=== PATIENT | male | born 1970 | race Caucasian/White ===

== ENCOUNTER 2020-12-21 14:41 | Inpatient (IN) | payer SELFPAY ==
[~2020-12-21] VITALS: Ht 180.3 cm; Wt 127.6 kg
[2020-12-21] MEDS ORDERED: IV NORMAL SALINE 1000ML BAG 1,000 ML IV SCH (15:45)
[2020-12-21 15:48] LABS: BASO % 0 % (0-3); EOS % 0 % (0-3); HEMATOCRIT 30.7 % (39.0-53.0); HEMOGLOBIN 10.5 g/dL (13.0-17.5); LYMPH # 2.4 x10^3/uL (1.0-4.8); LYMPH % 25 % (24-48); MEAN CORPUSCULAR HEMOGLOBIN 28 pg (25-35); MEAN CORPUSCULAR HGB CONC 34 g/dL (31-37); MEAN CORPUSCULAR VOLUME 82 fL (79-100); MONO # 0.7 x10^3/uL (0.0-1.1); MONO % 7 % (0-9); NEUT # 6.7 x10^3/uL (1.8-7.7); NEUT % 68 % (31-73); PLATELET COUNT 273 x10^3/uL (140-400); RED BLOOD COUNT 3.75 x10^6/uL (4.30-5.70); RED CELL DISTRIBUTION WIDTH 13.7 % (11.5-14.5); WHITE BLOOD COUNT 9.9 x10^3/uL (4.0-11.0)
--- NOTE | 2020-12-21 15:51 | EKG ---
[facility] [address] [place] [address] Test Date: 2020-12-21 Test Time: 15:11:52 Pat Name: BRANDY WILLS Department: Room: Gender: M [employer] Product Owner: : 1970 Requested By: BRIAN VALIENTE Order Number: [id number] Reading MD: Segun Nettles Measurements Intervals [place] Rate: 106 P: 47 MI: 186 QRS: 1 QRSD: 92 T: 146 QT: 356 QTc: 475 Interpretive Statements SINUS TACHYCARDIA LEFT ATRIAL ABNORMALITY LVH WITH REPOLARIZATION ABNORMALITY QRS(T) CONTOUR ABNORMALITY CONSIDER ANTEROSEPTAL MYOCARDIAL DAMAGE ABNORMAL ECG RI6.01 No previous ECG available for comparison Electronically Signed On 12-21-2020 20:53:09 CDT by Segun Nettles
[2020-12-21 16:03] LABS: CALCIUM 8.1 mg/dL (8.5-10.1); CREATININE 0.9 mg/dL (0.7-1.3); GFR 89.3; POTASSIUM 3.8 mmol/L (3.5-5.1)
--- NOTE | 2020-12-21 16:07 | RAD ---
EXAM: Chest, single view. HISTORY: Syncope. COMPARISON: None. FINDINGS: A frontal view of the chest is obtained. There is no infiltrate, pleural effusion or pneumo thorax. The heart is normal in size. IMPRESSION: No acute pulmonary finding. Electronically signed by: Lisbet Hill MD (12/21/2020 4:05 PM) [id number]
[2020-12-21 16:08] LABS: ALBUMIN/GLOBULIN RATIO 0.9 (1.0-1.7); TOTAL BILIRUBIN 0.3 mg/dL (0.2-1.0); TOTAL PROTEIN 6.2 g/dL (6.4-8.2)
--- NOTE | 2020-12-21 16:17 | PHYS DOC ---
Past Medical History Past Surgical History: No Surgical History Smoking Status: Never Smoker Alcohol Use: None General Adult EDM: Chief Complaint: MULTIPLE COMPLAINTS HPI: HPI: Patient is a 50 year old male who presents with 24 hours of shortness of air, weakness, headache, dizziness, possible syncopal episode in the doorway of his bathroom where he states he smashed his belly up against the door frame, lack of appetite. Went to well-[facility] yesterday and does not know if he maybe ate something bad. He states he is been having some diarrhea today. Denies any past medical history or surgeries. Denies any pain, chest pain, vision change, focal weakness, numbness or tingling, abdominal pain, back pain, neck pain, nausea, vomiting, fever. Review of Systems: Review of Systems: Constitutional: Denies fever or chills. [] Eyes: Denies change in visual acuity. [] HENT: Denies nasal congestion or sore throat. + Nasal congestion [] Respiratory: Denies cough or shortness of breath. [] Cardiovascular: Denies chest pain or edema. [] GI: Denies abdominal pain, nausea, vomiting, bloody stools or +diarrhea. [] : Denies dysuria. [] Musculoskeletal: Denies back pain or joint pain. + Generalized weakness [] Integument: Denies rash. [] Neurologic: + headache, denies focal weakness or sensory changes. + Dizziness, +Syncopal episode [] Endocrine: Denies polyuria or polydipsia. [] Lymphatic: Denies swollen glands. [] Psychiatric: Denies depression or anxiety. [] Heart Score: C/O Chest Pain: No HEART Score for Chest Pain: HEART Score for Chest Pain Response (Comments) Value History Slighlty/Non-Suspicious 0 ECG Nonspecific Repolarizatio 1 Age >45 - < 65 1 Risk Factors 1 or 2 Risk Factors 1 Troponin < Normal Limit 0 Total 3 Risk Factors: Risk Factors: DM, Current or recent (<one month) smoker, HTN, HLP, family history of CAD, obesity. Risk Scores: Score 0 - 3: 2.5% MACE over next 6 weeks - Discharge Home Score 4 - 6: 20.3% MACE over next 6 weeks - Admit for Clinical Observation Score 7 - 10: 72.7% MACE over next 6 weeks - Early Invasive Strategies Current Medications: Current Medications Medications (Trade) Dose Ordered Sig/Bishnu Start Time Stop Time Status Last Admin Dose Admin Sodium Chloride 1,000 ml @ 1,000 mls/hr Q1H 12/21/20 15:45 12/21/20 16:44 12/21/20 15:51 1,000 MLS/HR Allergies: Allergies: Allergies Coded Allergies Type Severity Reaction Last Updated Verified No Known Drug Allergies 12/21/20 No Physical Exam: PE: Constitutional: Well developed, well nourished, no acute distress, non-toxic appearance. [] HENT: Normocephalic, atraumatic, bilateral external ears normal, oropharynx moist, no oral exudates, nose normal. [] Eyes: PERRLA, EOMI, conjunctiva normal, no discharge. [] Neck: Normal range of motion, no tenderness, supple, no stridor. [] Cardiovascular:Heart rate regular rhythm, no murmur [] Lungs & Thorax: Bilateral breath sounds clear to auscultation [] Abdomen: Bowel sounds normal, soft, no tenderness, no masses, no pulsatile masses. [] Skin: Warm, dry, no erythema, no rash. Mottling to bilateral upper arms, abdomen [] Back: No tenderness, no CVA tenderness. [] Extremities: No tenderness, no cyanosis, no clubbing, ROM intact, no edema. [] Neurologic: Alert and oriented X 3, normal motor function, normal sensory function, no focal deficits noted. [] Psychologic: Affect normal, judgement normal, mood normal. [] Current Patient Data: Labs: Laboratory Tests Test 12/21/20 14:57 White Blood Count 9.9 x10^3/uL (4.0-11.0) Red Blood Count 3.75 x10^6/uL (4.30-5.70) L Hemoglobin 10.5 g/dL (13.0-17.5) L Hematocrit 30.7 % (39.0-53.0) L Mean Corpuscular Volume 82 fL (79-100) Mean Corpuscular Hemoglobin 28 pg (25-35) Mean Corpuscular Hemoglobin Concent 34 g/dL (31-37) Red Cell Distribution Width 13.7 % (11.5-14.5) Platelet Count 273 x10^3/uL (140-400) Neutrophils (%) (Auto) 68 % (31-73) Lymphocytes (%) (Auto) 25 % (24-48) Monocytes (%) (Auto) 7 % (0-9) Eosinophils (%) (Auto) 0 % (0-3) Basophils (%) (Auto) 0 % (0-3) Neutrophils # (Auto) 6.7 x10^3/uL (1.8-7.7) Lymphocytes # (Auto) 2.4 x10^3/uL (1.0-4.8) Monocytes # (Auto) 0.7 x10^3/uL (0.0-1.1) Eosinophils # (Auto) 0.0 x10^3/uL (0.0-0.7) Basophils # (Auto) 0.0 x10^3/uL (0.0-0.2) Laboratory Tests 12/21/20 14:57 Vital Signs: Vital Signs Date Time Temp Pulse Resp B/P (MAP) Pulse Ox O2 Delivery O2 Flow Rate FiO2 12/21/20 14:41 96.2 109 17 178/84 (115) 100 Room Air 96.2 EKG: EK and read by Dr. Olivarez is sinus tachycardia at 106 with a slight prolonged QT with T wave inversion in 1 and aVL, 5, 6, no STEMI [] Radiology/Procedures: Radiology/Procedures: [] Impression: [facility] [address] [place] [address] IMAGING REPORT Signed PATIENT: BRANDY WILLS ACCOUNT: [id number] : 1970 LOCATION: ER AGE: 50 SEX: M EXAM STATUS: PRE ER ORD. PHYSICIAN: BRIAN VALIENTE APRN REASON: soa, syncope PROCEDURE: PORTABLE CHEST 1V EXAM: Chest, single view. HISTORY: Syncope. COMPARISON: None. FINDINGS: A frontal view of the chest is obtained. There is no infiltrate, pleural effusion or pneumothorax. The heart is normal in size. IMPRESSION: No acute pulmonary finding. Electronically signed by: Lisbet Bradford MD (12/21/2020 4:05 PM) [id number] DICTATED and SIGNED BY: LISBET BRADFORD MD DATE: 12/21/20 [id number] [facility] [address] [facility] [place], [place] [id number] IMAGING REPORT Signed PATIENT: BRANDY WILLS ACCOUNT: [id number] : 1970 LOCATION: ER AGE: 50 SEX: M EXAM STATUS: REG ER ORD. PHYSICIAN: BRIAN VALIENTE APRN REASON: SYNCOPE PROCEDURE: CT HEAD AND CERVICAL SPINE WO CT Head W/O Contrast: History: Reason: SYNCOPE / Spl. Instructions: / History: Comparison: none Axial images were obtained without contrast. The bryant and white matter appears normal and symmetrical for the patients age. There is no mass effect, extraaxial fluid collections or hydrocephalus. There is no gross bleed. There is no focal loss of bryant-white matter distinction to suggest acute ischemia, i.e. stroke. Impression: No acute findings. End impression CT C-Spine without contrast: Clinical History: Reason: SYNCOPE / Spl. Instructions: / History: Technique: Axial helical images of the cervical spine were obtained without contrast, axial coronal and sagittal reconstruction was performed. Findings: There is no loss of vertebral body stature. There is no prevertebral soft tissue swelling. The vertebral bodies are well aligned. There is straightening of the normal cervical lordosis which can be positional or could be chronic. The C1-C2 relationship is normal. The visualized osseous structures appear normal. Evaluation of the central canal is limited without contrast. There is multiple posterior disc bulges resulting in flattening of the thecal sac. There does not appear to be gross flattening of the cervical cord. There is moderate narrowing of multiple neuroforamen. Impression: No acute findings. Clinical correlation suggested. PQRS Compliance Statement: One or more of the following individualized dose reduction techniques were utili zed for this examination: 1. Automated exposure control 2. Adjustment of the mA and/or kV according to patient size 3. Use of iterative reconstruction technique Electronically signed by: Lana Raphael III, MD (12/21/2020 7:28 PM) [facility] DICTATED and SIGNED BY: LANA RAPHAEL III, MD DATE: 12/21/20 [id number] [facility] [address] [place] [address] IMAGING REPORT Signed PATIENT: BRANDY WILLS ACCOUNT: [id number] : 1970 LOCATION: ER AGE: 50 SEX: M EXAM STATUS: REG ER ORD. PHYSICIAN: BRINA VALIENTE APRN REASON: diarrhea PROCEDURE: CT ABD PELV W/ IV CONTRST ONLY CT OF THE ABDOMEN AND PELVIS WITH IV CONTRAST. History: Reason: diarrhea / Spl. Instructions: / History: Comparison:None. Procedure: Contiguous axial images of the abdomen and pelvis were performed after the administration of 75 cc of Isovue 370 IV contrast. Oral contrast: No. Findings: There is fat-containing inguinal canal hernias. The colon is collapsed. There is multiple dilated air and fluid-filled loops of small bowel. Liver: Hypoattenuating Spleen: Unremarkable Pancreas: Unremarkable Adrenal Glands: Unremarkable Kidneys: There is a small cyst on the right There is no mass or lymphadenopathy. There is no free air. There is no free fluid. The urinary bladder appears normal. Impression: 1. Fatty infiltration of the liver. 2. Dilated loops of small bowel especially on the left suggests a partial small bowel obstruction. An exact transition zone is not seen. End Impression PQRS Compliance Statement: One or more of the following individualized dose reduction techniques were utilized for this examination: 1. Automated exposure control 2. Adjustment of the mA and/or kV according to patient size 3. Use of iterative reconstruction technique Electronically signed by: Lana Raphael III, MD (12/21/2020 7:57 PM) [facility] DICTATED and SIGNED BY: LANA RAPHAEL III, MD DATE: 12/21/[id number] 0 Course & Med Decision Making: Course & Med Decision Making Pertinent Labs and Imaging studies reviewed. (See chart for details) COVID-19 CRITERIA: The patient was evaluated during the global COVID-19 pandemic, and that diagnosis was suspected/considered upon their initial presentation. Their evaluation, treatment and testing was consistent with c urrent guidelines for patients who present with complaints or symptoms that may be related to COVID-19. See HPI. Alert and oriented x4. Ambulatory with steady gait. Speaks in full clear sentences. Lungs are clear in upper lobes with diminished in lower lobes. He does have mottling to his abdomen and his upper arms and looks like maybe his upper thigh area and on his sides bilaterally. Abdomen is soft and nontender. He is afebrile. He is slightly tachycardic. Plan talk to Dr. Talamantes concerning this patient and he stated that the patient be n.p.o. and start a NG tube. 2235: RN attempted NG tube insertion. Patient refused. [] Dragon Disclaimer: Maria C Disclaimer: This electronic medical record was generated, in whole or in part, using a voice recognition dictation system. COVID-19 Patient Risks: Age 65 or older: No Sign of co-morbidity: Yes Exp to person + for COVID: No Exp to PUI: No Travel from affected area: No Lower respiratory symptoms: Yes Fever: No Other: Yes (weakness, diarrhea) PPE Use: Full PPE with N95 mask or PAPR: Yes Departure Departure Impression: Primary Impression: Partial small bowel obstruction Disposition: ADMITTED INPATIENT Admitting Physician: DEMARCO Condition: STABLE BRIAN VALIENTE FURNACE CHARGER Dec 21, 2020 16:17
[2020-12-21 16:24] LABS: INFLUENZA A PATIENT NEGATIVE (NEGATIVE); INFLUENZA B PATIENT NEGATIVE (NEGATIVE)
[2020-12-21 17:59] LABS: BILIRUBIN,URINE NEGATIVE (NEG); CLARITY,URINE CLOUDY; COLOR,URINE YELLOW; NITRITE,URINE NEGATIVE (NEG); PH,URINE 5.5 (<5.0-8.0); PROTEIN,URINE NEGATIVE (NEG-TRACE)
[2020-12-21] MEDS ORDERED: CONTRAST GIVEN. MC PRN (18:00)
[2020-12-21] MEDS ORDERED: IV NORMAL SALINE 1000ML BAG 1,000 ML IV ONE (18:00)
[2020-12-21] MEDS ORDERED: IOHEXOL 300 MG/ML 100ML VIAL. IV ONE (18:00)
[2020-12-21 18:06] LABS: BARBITURATES NEG (NEG); BENZODIAZEPINES NEG (NEG); CANNABINOIDS NEG (NEG); COCAINE NEG (NEG); METHADONE NEG (NEG); OPIATES NEG (NEG); PHENCYCLIDINE NEG (NEG)
[2020-12-21 18:07] LABS: AMPHETAMINE/METHAMPHETAMINE POS (NEG)
[2020-12-21 18:10] LABS: BACTERIA,URINE 0 /HPF (0-FEW); RBC,URINE 0 /HPF (0-2); WBC,URINE RARE /HPF (0-4)
[2020-12-21] MEDS ORDERED: ONDANSETRON PF 4 MG/2 ML VIAL. ONE (18:45)
[2020-12-21] MEDS ORDERED: FAMOTIDINE 20 MG/2 ML VIAL ONE (18:49)
[2020-12-21] MEDS ORDERED: FAMOTIDINE 20 MG/2 ML VIAL IVP ONE (19:00)
[2020-12-21] MEDS ORDERED: ONDANSETRON PF 4 MG/2 ML VIAL. IVP ONE (19:00)
--- NOTE | 2020-12-21 19:31 | RAD ---
CT Head W/O Contrast: History: Reason: SYNCOPE / Spl. Instructions: / History: Comparison: none Axial images were obtained without contrast. The bryant and white matter appears normal and symmetrical for the patients age. There is no mass effe ct, extraaxial fluid collections or hydrocephalus. There is no gross bleed. There is no focal loss of bryant-white matter distinction to suggest acute ischemia, i.e. stroke. Impression: No acute findings. End impression CT C-Spine without contrast: Clinical History: Reason: SYNCOPE / Spl. Instructions: / History: Technique: Axial helical images of the cervical spine were obtained without contrast, axial coronal and sagittal reconstruction was performed. Findings: There is no loss of vertebral body stature. There is no prevertebral soft tissue swelling. The vert ebral bodies are well aligned. There is straightening of the normal cervical lordosis which can be p ositional or could be chronic. The C1-C2 relationship is normal. The visualized osseous structures ap pear normal. Evaluation of the central canal is limited without contrast. There is multiple posterio r disc bulges resulting in flattening of the thecal sac. There does not appear to be gross flattening of the cervical cord. There is moderate narrowing of multiple neuroforamen. Impression: No acute findings. Clinical correlation suggested. PQRS Compliance Statement: One or more of the following individualized dose reduction techniques were utilized for this examinat ion: 1. Automated exposure control 2. Adjustment of the mA and/or kV according to patient size 3. Use of iterative reconstruction technique Electronically signed by: Bright Nguyen III, MD (12/21/2020 7:28 PM) [facility]
--- NOTE | 2020-12-21 19:59 | RAD ---
CT OF THE ABDOMEN AND PELVIS WITH IV CONTRAST. History: Reason: diarrhea / Spl. Instructions: / History: Comparison:None. Procedure: Contiguous axial images of the abdomen and pelvis were performed after the administration of 75 cc o f Isovue 370 IV contrast. Oral contrast: No. Findings: There is fat-containing inguinal canal hernias. The colon is collapsed. There is multiple dilated air and fluid-filled loops of small bowel. Liver: Hypoattenuating Spleen: Unremarkable Pancreas: Unremarkable Adrenal Glands: Unremarkable Kidneys: There is a small cyst on the right There is no mass or lymphadenopathy. There is no free air. There is no free fluid. The urinary bladder appears normal. Impression: 1. Fatty infiltration of the liver. 2. Dilated loops of small bowel especially on the left suggests a partial small bowel obstruction. An exact transition zone is not seen. End Impression PQRS Compliance Statement: One or more of the following individualized dose reduction techniques were utilized for this examinat ion: 1. Automated exposure control 2. Adjustment of the mA and/or kV according to patient size 3. Use of iterative reconstruction technique Electronically signed by: Bright Nguyen III, MD (12/21/2020 7:57 PM) [facility]
[2020-12-22 03:00] VITALS: BP 150/98
--- NOTE | 2020-12-22 03:00 | NUR ---
0330 I introduced myself upon arrival in patient room, 0418 when I returned to do assessment patient was asleep and snoring soundly and would not respond to touch and attempt to wake up. Safety measures are in place. Will continue to monitor and reattempt assessment.
[2020-12-22 07:00] VITALS: BP 144/89
[2020-12-22] MEDS ORDERED: LACTULOSE 20 GM/30 ML SOLUTION. PO PRN (08:45)
[2020-12-22] MEDS ORDERED: ELECTROLYTE (NON-ICU) PROTOCOL. MC PRN (08:45)
[2020-12-22] MEDS ORDERED: CALCIUM CARBONATE 500 MG TAB.CHEW PO PRN (08:45)
[2020-12-22] MEDS ORDERED: ZOLPIDEM 5 MG TABLET. PO PRN (08:45)
[2020-12-22] MEDS ORDERED: BISACODYL 10 MG SUPP.RECT. PR PRN (08:45)
[2020-12-22] MEDS ORDERED: hydrALAZINE 20 MG/ML VIAL. IVP PRN (08:45)
[2020-12-22] MEDS ORDERED: ONDANSETRON PF 4 MG/2 ML VIAL. IVP PRN (08:45)
[2020-12-22] MEDS ORDERED: MAGNESIUM HYDROXIDE 2,400 MG/30 ML ORAL.SUSP. PO PRN (08:45)
[2020-12-22] MEDS: SENNOSIDES/DOCUSATE 8.6/50MG TABLET. PO SCH ×2 (09:00→21:00)
--- NOTE | 2020-12-22 09:38 | PDOC1 ---
History and Physical Date of Service: DOS: DATE: 12/22/20 TIME: 09:29 Chief Complaint: Problems: (1) SOB (shortness of breath) (2) Partial small bowel obstruction Chief Complain: abd pain, SOB History of Present Illness: HPI: Patient 50-year-old white male presented the emergency room overnight due to worsening shortness of breath weakness dizziness and easy fatigue. Patient thinks he had a syncopal episode at home where he fell onto his doorway and hit his abdomen against the door frame. He said this changed to pretty immediate bruising. Reporting decreased appetite since this episode. Still having bowel movements. Patient presented to the emergency room where imaging showed a partial small bowel obstruction and he was admitted for further treatment. I evaluated the patient elicited Further history patient reports his shortness of breath and easy fatigue is actually been going on for a few months. Says even with minimal exertion he is very out of breath. Does report that he notices his ankles are swollen at night sometimes. Feels like he needs to sleep with his head propped up and that he actually has some difficulty sleeping due to shortness of breath.. Says he is supposed to be taking some sort of heart medicine however not sure what it supposed to be and has not been taking it anyways. He said a previous physician was 1 who recommended he start it but cannot remember the name. Past Medical/Surgical History: PMH/PSH: Patient says he thinks he supposed to be on heart medicine but not know further details otherwise no past medical history Allergies: Allergies: Coded Allergies: No Known Drug Allergies (Unverified , 12/21/20) Family History: Family History: Reports family history hypertension Social History: Social History: Patient denies tobacco use. Denies drug use. Social alcohol use Current Medications: Current Medications Current Medications Sodium Chloride 1,000 ml @ 1,000 mls/hr Q1H IV Last administered on 12/21/20at 15:51; Start 12/21/20 at 15:45; Stop 12/21/20 at 16:44; Status DC Sodium Chloride 1,000 ml @ 1,000 mls/hr 1X ONCE IV Last administered on 12/21/20at 19:21; Start 12/21/20 at 18:00; Stop 12/21/20 at 18:59; Status DC Iohexol (Omnipaque 300 Mg/ml) 75 ml 1X ONCE IV Last administered on 12/21/20at 18:59; Start 12/21/20 at 18:00; Stop 12/21/20 at 18:01; Status DC Info (CONTRAST GIVEN -- Rx MONITORING) 1 each PRN DAILY PRN MC SEE COMMENTS; Start 12/21/20 at 18:00; Stop 12/23/20 at 17:59 Ondansetron HCl (Zofran) 4 mg 1X ONCE IVP Last administered on 12/21/20at 18:47; Start 12/21/20 at 19:00; Stop 12/21/20 at 19:01; Status DC Ondansetron HCl (Zofran) 4 mg STK-MED ONCE .ROUTE ; Start 12/21/20 at 18:45; Stop 12/21/20 at 18:45; Status DC Famotidine (Pepcid Vial) 20 mg 1X ONCE IVP Last administered on 12/21/20at 18:50; Start 12/21/20 at 19:00; Stop 12/21/20 at 19:01; Status DC Famotidine (Pepcid Vial) 20 mg STK-MED ONCE .ROUTE ; Start 12/21/20 at 18:49; Stop 12/21/20 at 18:49; Status DC Ondansetron HCl (Zofran) 4 mg PRN Q6HRS PRN IVP NAUSEA/VOMITING; Start 12/22/20 at 08:45 Calcium Carbonate/ Glycine (Tums) 500 mg PRN Q3HRS PRN PO UPSET STOMACH; Start 12/22/20 at 08:45 Zolpidem Tartrate (Ambien) 5 mg PRN QHS PRN PO INSOMNIA, MAY REPEAT IN 1HR; Start 12/22/20 at 08:45 Info (Non-Icu Electrolyte Protocol) 1 ea PRN DAILY PRN MC SEE COMMENTS; Start 12/22/20 at 08:45 Senna/Docusate Sodium (Senna Plus) 1 tab BID PO ; Start 12/22/20 at 09:00 Magnesium Hydroxide (Milk Of Magnesia) 2,400 mg PRN Q12HR PRN PO CONSTIPATION; Start 12/22/20 at 08:45 Lactulose (Lactulose) 20 gm PRN Q12HR PRN PO CONSTIPATION; Start 12/22/20 at 08 :45 Bisacodyl (Dulcolax Supp) 10 mg PRN DAILY PRN [place] CONSTIPATION; Start 12/22/20 at 08:45 Heparin Sodium (Porcine) (Heparin Sodium) 5,000 unit Q8HRS SQ ; Start 12/22/20 at 14:00 Hydralazine HCl (Apresoline Inj) 10 mg PRN Q4HRS PRN IVP ELEVATED BP, SEE C OMMENTS; Start 12/22/20 at 08:45 Lisinopril (Prinivil) 5 mg DAILY PO ; Start 12/22/20 at 09:30 ROS: Review of Systems Review of System Unless noted in HPI 14 point review of systems was negative Physical Exam: Vital Signs: Vital Signs Date Time Temp Pulse Resp B/P (MAP) Pulse Ox O2 Delivery O2 Flow Rate FiO2 12/22/20 07:00 97.6 94 18 144/89 (107) 98 Nasal Cannula 2.0 97.6 Physcial Exam: GEN: No apparent distress. Alert and oriented HEENT: Normal cephalic, atraumatic, external auditory canals are patent EYES: Extraocular muscles are intact, pupil are equally round and reactive to light and accommodation MUSCULOSKELETAL: Well developed , well nourished, good range of motion ENDOCRINE: No thyromegaly was palpated LYMPHATICS: No cervical chain or axillary nodes were noted HEMATOPOIETIC: No bruising NECK: Supple, no JVD, no thyromegaly was noted LUNGS: Clear to auscultation in all lung clarke without rhonchi or wheezing HEART: RRR, S1, S2 present. Peripheral pulses intact, no obvious murmurs noted ABDOMEN: Soft, nontender. Positive bowel sounds, no organomegaly, normal bowel sounds EXTREMITIES: Mild pitting edema in ankles NEUROLOGIC: Normal speech and tone. A&O x 3, moves all extremities, no obvious focal deficits PSYCHIATRIC: Normal affect, normal mood. Stable SKIN: No ulcerations or rashes, good skin turgor, no jaundice VASCULAR: Good capillary refill, neurovascular bundle appears to be intact Labs: Labs: Laboratory Tests Test 12/21/20 14:57 12/21/20 15:44 12/21/20 16:00 12/21/20 16:30 White Blood Count 9.9 x10^3/uL (4.0-11.0) Red Blood Count 3.75 x10^6/uL (4.30-5.70) Hemoglobin 10.5 g/dL (13.0-17.5) Hematocrit 30.7 % (39.0-53.0) Mean Corpuscular Volume 82 fL (79-100) Mean Corpuscular Hemoglobin 28 pg (25-35) Mean Corpuscular Hemoglobin Concent 34 g/dL (31-37) Red Cell Distribution Width 13.7 % (11.5-14.5) Platelet Count 273 x10^3/uL (140-400) Neutrophils (%) (Auto) 68 % (31-73) Lymphocytes (%) (Auto) 25 % (24-48) Monocytes (%) (Auto) 7 % (0-9) Eosinophils (%) (Auto) 0 % (0-3) Basophils (%) (Auto) 0 % (0-3) Neutrophils # (Auto) 6.7 x10^3/uL (1.8-7.7) Lymphocytes # (Auto) 2.4 x10^3/uL (1.0-4.8) Monocytes # (Auto) 0.7 x10^3/uL (0.0-1.1) Eosinophils # (Auto) 0.0 x10^3/uL (0.0-0.7) Basophils # (Auto) 0.0 x10^3/uL (0.0-0.2) Sodium Level 141 mmol/L (136-145) Potassium Level 3.8 mmol/L (3.5-5.1) Chloride Level 107 mmol/L (98-107) Carbon Dioxide Level 23 mmol/L (21-32) Anion Gap 11 (6-14) Blood Urea Nitrogen 49 mg/dL (8-26) Creatinine 0.9 mg/dL (0.7-1.3) Estimated GFR (Cockcroft-Gault) 89.3 BUN/Creatinine Ratio 54 (6-20) Glucose Level 155 mg/dL (70-99) Calcium Level 8.1 mg/dL (8.5-10.1) Total Bilirubin 0.3 mg/dL (0.2-1.0) Aspartate Amino Transf (AST/SGOT) 23 U/L (15-37) Alanine Aminotransferase (ALT/SGPT) 66 U/L (16-63) Alkaline Phosphatase 53 U/L (46-116) Troponin I High Sensitivity 15 ng/L (4-75) Total Protein 6.2 g/dL (6.4-8.2) Albumin 3.0 g/dL (3.4-5.0) Albumin/Globulin Ratio 0.9 (1.0-1.7) Lipase 144 U/L (73-393) SARS-CoV-2 Antigen (Rapid) Negative (NEGATIVE) Influenza Type A Antigen Negative (NEGATIVE) Influenza Type B Antigen Negative (NEGATIVE) Prothrombin Time 13.0 SEC (11.7-14.0) Prothromb Time International Ratio 1.0 (0.8-1.1) Activated Partial Thromboplast Time 30 SEC (24-38) Test 12/21/20 17:30 Urine Color Yellow Urine Clarity Cloudy Urine pH 5.5 (<5.0-8.0) Urine Specific [place] 1.025 (1.000-1.030) Urine Protein Negative mg/dL (NEG-TRACE) Urine Glucose (UA) Negative mg/dL (NEG) Urine Ketones (Stick) Negative mg/dL (NEG) Urine Blood Negative (NEG) Urine Nitrite Negative (NEG) Urine Bilirubin Negative (NEG) Urine Urobilinogen Dipstick 1.0 mg/dL (0.2 mg/dL) Urine Leukocyte Esterase Negative (NEG) Urine RBC 0 /HPF (0-2) Urine WBC Rare /HPF (0-4) Urine Squamous Epithelial Cells Few /LPF Urine Bacteria 0 /HPF (0-FEW) Urine Opiates Screen Neg (NEG) Urine Methadone Screen Neg (NEG) Urine Barbiturates Neg (NEG) Urine Phencyclidine Screen Neg (NEG) Urine Amphetamine/Methamphetamine Pos (NEG) Urine Benzodiazepines Screen Neg (NEG) Urine Cocaine Screen Neg (NEG) Urine Cannabinoids Screen Neg (NEG) Urine Ethyl Alcohol Neg (NEG) Laboratory Tests Test 12/21/20 14:57 12/21/20 15:44 12/21/20 16:00 12/21/20 16:30 White Blood Count 9.9 x10^3/uL (4.0-11.0) Red Blood Count 3.75 x10^6/uL (4.30-5.70) Hemoglobin 10.5 g/dL (13.0-17.5) Hematocrit 30.7 % (39.0-53.0) Mean Corpuscular Volume 82 fL (79-100) Mean Corpuscular Hemoglobin 28 pg (25-35) Mean Corpuscular Hemoglobin Concent 34 g/dL (31-37) Red Cell Distribution Width 13.7 % (11.5-14.5) Platelet Count 273 x10^3/uL (140-400) Neutrophils (%) (Auto) 68 % (31-73) Lymphocytes (%) (Auto) 25 % (24-48) Monocytes (%) (Auto) 7 % (0-9) Eosinophils (%) (Auto) 0 % (0-3) Basophils (%) (Auto) 0 % (0-3) Neutrophils # (Auto) 6.7 x10^3/uL (1.8-7.7) Lymphocytes # (Auto) 2.4 x10^3/uL (1.0-4.8) Monocytes # (Auto) 0.7 x10^3/uL (0.0-1.1) Eosinophils # (Auto) 0.0 x10^3/uL (0.0-0.7) Basophils # (Auto) 0.0 x10^3/uL (0.0-0.2) Sodium Level 141 mmol/L (136-145) Potassium Level 3.8 mmol/L (3.5-5.1) Chloride Level 107 mmol/L (98-107) Carbon Dioxide Level 23 mmol/L (21-32) Anion Gap 11 (6-14) Blood Urea Nitrogen 49 mg/dL (8-26) Creatinine 0.9 mg/dL (0.7-1.3) Estimated GFR (Cockcroft-Gault) 89.3 BUN/Creatinine Ratio 54 (6-20) Glucose Level 155 mg/dL (70-99) Calcium Level 8.1 mg/dL (8.5-10.1) Total Bilirubin 0.3 mg/dL (0.2-1.0) Aspartate Amino Transf (AST/SGOT) 23 U/L (15-37) Alanine Aminotransferase (ALT/SGPT) 66 U/L (16-63) Alkaline Phosphatase 53 U/L (46-116) Troponin I High Sensitivity 15 ng/L (4-75) Total Protein 6.2 g/dL (6.4-8.2) Albumin 3.0 g/dL (3.4-5.0) Albumin/Globulin Ratio 0.9 (1.0-1.7) Lipase 144 U/L (73-393) SARS-CoV-2 Antigen (Rapid) Negative (NEGATIVE) Influenza Type A Antigen Negative (NEGATIVE) Influenza Type B Antigen Negative (NEGATIVE) Prothrombin Time 13.0 SEC (11.7-14.0) Prothromb Time International Ratio 1.0 (0.8-1.1) Activated Partial Thromboplast Time 30 SEC (24-38) Test 12/21/20 17:30 Urine Color Yellow Urine Clarity Cloudy Urine pH 5.5 (<5.0-8.0) Urine Specific [place] 1.025 (1.000-1.030) Urine Protein Negative mg/dL (NEG-TRACE) Urine Glucose (UA) Negative mg/dL (NEG) Urine Ketones (Stick) Negative mg/dL (NEG) Urine Blood Negative (NEG) Urine Nitrite Negative (NEG) Urine Bilirubin Negative (NEG) Urine Urobilinogen Dipstick 1.0 mg/dL (0.2 mg/dL) Urine Leukocyte Esterase Negative (NEG) Urine RBC 0 /HPF (0-2) Urine WBC Rare /HPF (0-4) Urine Squamous Epithelial Cells Few /LPF Urine Bacteria 0 /HPF (0-FEW) Urine Opiates Screen Neg (NEG) Urine Methadone Screen Neg (NEG) Urine Barbiturates Neg (NEG) Urine Phencyclidine Screen Neg (NEG) Urine Amphetamine/Methamphetamine Pos (NEG) Urine Benzodiazepines Screen Neg (NEG) Urine Cocaine Screen Neg (NEG) Urine Cannabinoids Screen Neg (NEG) Urine Ethyl Alcohol Neg (NEG) Assessment/Plan Assessment/Plan Partial small bowel obstruction, shortness of breath easy fatigue secondary to possible CHF exacerbation -Patient presenting after possible syncopal episode into the doorway. Has been having issues with swelling of feet and shortness of breath lately -After fall onto the doorway he presented here found a partial small bowel obstruction. Patient is having bowel movements still. General surgery following. -His story does seem suspicious for a CHF exacerbation. Will order echo and consult cardiology -Patient denies any home meds none to resume -With history of difficulty catching his breath while sleeping will try BiPAP when asleep -As patient is having bowel movements still he can try some ice chips for now -DVT prophylaxis Justifications for Admission Other Justification SONU LOFTON MD Dec 22, 2020 09:38
--- NOTE | 2020-12-22 10:03 | PDOC2 ---
CONSULT Date of Consult Date of Consult DATE: 12/22/20 TIME: 09:58 Reason for Consult Reason for Consult: SBO Referring Physician Referring Physician: ER Identification/Chief Complaint Chief Complaint fall, swelling Source Source: Chart review, Patient History of Present Illness Reason for Visit: Main complaint is leg/feet swelling, SOA syncope yesterday, hit abdomen on door as falling--currently denies abdominal pain, having loose stools, mild nausea yesterday, now resolved Past Medical History Past Medical History poor historian, some cardiac hx, however he did not FU with provider Past Surgical History Past Surgical History: No pertinent history Family History Family History: Family History Unknown Social History No ALCOHOL: none Drugs: Crystal meth Current Problem List Problem List Problems Medical Problems: (1) Partial small bowel obstruction Status: Acute Current Medications Current Medications Current Medications Sodium Chloride 1,000 ml @ 1,000 mls/hr Q1H IV Last administered on 12/21/20at 15:51; Start 12/21/20 at 15:45; Stop 12/21/20 at 16:44; Status DC Sodium Chloride 1,000 ml @ 1,000 mls/hr 1X ONCE IV Last administered on 12/21/20at 19:21; Start 12/21/20 at 18:00; Stop 12/21/20 at 18:59; Status DC Iohexol (Omnipaque 300 Mg/ml) 75 ml 1X ONCE IV Last administered on 12/21/20at 18:59; Start 12/21/20 at 18:00; Stop 12/21/20 at 18:01; Status DC Info (CONTRAST GIVEN -- Rx MONITORING) 1 each PRN DAILY PRN MC SEE COMMENTS; Start 12/21/20 at 18:00; Stop 12/23/20 at 17:59 Ondansetron HCl (Zofran) 4 mg 1X ONCE IVP Last administered on 12/21/20at 18:47; Start 12/21/20 at 19:00; Stop 12/21/20 at 19:01; Status DC Ondansetron HCl (Zofran) 4 mg STK-MED ONCE .ROUTE ; Start 12/21/20 at 18:45; Stop 12/21/20 at 18:45; Status DC Famotidine (Pepcid Vial) 20 mg 1X ONCE IVP Last administered on 12/21/20at 18:50; Start 12/21/20 at 19:00; Stop 12/21/20 at 19:01; Status DC Famotidine (Pepcid Vial) 20 mg STK-MED ONCE .ROUTE ; Start 12/21/20 at 18:49; Stop 12/21/20 at 18:49; Status DC Ondansetron HCl (Zofran) 4 mg PRN Q6HRS PRN IVP NAUSEA/VOMITING; Start 12/22/20 at 08:45 Calcium Carbonate/ Glycine (Tums) 500 mg PRN Q3HRS PRN PO UPSET STOMACH; Start 12/22/20 at 08:45 Zolpidem Tartrate (Ambien) 5 mg PRN QHS PRN PO INSOMNIA, MAY REPEAT IN 1HR; Start 12/22/20 at 08:45 Info (Non-Icu Electrolyte Protocol) 1 ea PRN DAILY PRN MC SEE COMMENTS; Start 12/22/20 at 08:45 Senna/Docusate Sodium (Senna Plus) 1 tab BID PO ; Start 12/22/20 at 09:00 Magnesium Hydroxide (Milk Of Magnesia) 2,400 mg PRN Q12HR PRN PO CONSTIPATION; Start 12/22/20 at 08:45 Lactulose (Lactulose) 20 gm PRN Q12HR PRN PO CONSTIPATION; Start 12/22/20 at 08:45 Bisacodyl (Dulcolax Supp) 10 mg PRN DAILY PRN [place] CONSTIPATION; Start 12/22/20 at 08:45 Heparin Sodium (Porcine) (Heparin Sodium) 5,000 unit Q8HRS SQ ; Start 12/22/20 at 14:00 Hydralazine HCl (Apresoline Inj) 10 mg PRN Q4HRS PRN IVP ELEVATED BP, SEE COMMENTS; Start 12/22/20 at 08:45 Lisinopril (Prinivil) 5 mg DAILY PO ; Start 12/22/20 at 09:30 Allergies Allergies: Coded Allergies: No Known Drug Allergies (Unverified , 12/21/20) ROS General: YES: Chills, Fatigue PSYCHOLOGICAL ROS: No: Anxiety, Depression Eyes: No Decreased vision, No Double vision HEENT: No: Heacaches, Sore Throat Hematological and Lymphatic: No: Bleeding Problems, Blood Clots Respiratory: YES: Shortness of breath, SOB with excertion; No: Cough Cardiovascular: No Chest Pain, No Palpitations Gastrointestinal: Yes Nausea, Yes Diarrhea; No Vomiting Genitourinary: No Dysuria, No Hematuria Musculoskeletal: Yes Swelling In: (legs ) Neurological: No Headaches Skin: No Mottling, No Pruritus Physical Exam General: Alert, Oriented X3, Cooperative HEENT: Atraumatic, PERRLA Lungs: Clear to auscultation, Normal air movement Heart: Regular rate, Normal S1, Normal S2 Abdomen: Soft, No tenderness, Other (ND) Extremities: No cyanosis, Other (+swelling) Skin: No rashes, No breakdown Neuro: Normal speech, Sensation intact Psych/Mental Status: Mental status NL, Mood NL MUSCULOSKELETAL: No deformity, No swelling Vitals VITALS Vital Signs Date Time Temp Pulse Resp B/P (MAP) Pulse Ox O2 Delivery O2 Flow Rate FiO2 12/22/20 07:00 97.6 94 18 144/89 (107) 98 Nasal Cannula 2.0 97.6 Labs Labs Laboratory Tests Test 12/21/20 14:57 12/21/20 15:44 12/21/20 16:00 12/21/20 16:30 White Blood Count 9.9 x10^3/uL (4.0-11.0) Red Blood Count 3.75 x10^6/uL (4.30-5.70) Hemoglobin 10.5 g/dL (13.0-17.5) Hematocrit 30.7 % (39.0-53.0) Mean Corpuscular Volume 82 fL (79-100) Mean Corpuscular Hemoglobin 28 pg (25-35) Mean Corpuscular Hemoglobin Concent 34 g/dL (31-37) Red Cell Distribution Width 13.7 % (11.5-14.5) Platelet Count 273 x10^3/uL (140-400) Neutrophils (%) (Auto) 68 % (31-73) Lymphocytes (%) (Auto) 25 % (24-48) Monocytes (%) (Auto) 7 % (0-9) Eosinophils (%) (Auto) 0 % (0-3) Basophils (%) (Auto) 0 % (0-3) Neutrophils # (Auto) 6.7 x10^3/uL (1.8-7.7) Lymphocytes # (Auto) 2.4 x10^3/uL (1.0-4.8) Monocytes # (Auto) 0.7 x10^3/uL (0.0-1.1) Eosinophils # (Auto) 0.0 x10^3/uL (0.0-0.7) Basophils # (Auto) 0.0 x10^3/uL (0.0-0.2) Sodium Level 141 mmol/L (136-145) Potassium Level 3.8 mmol/L (3.5-5.1) Chloride Level 107 mmol/L (98-107) Carbon Dioxide Level 23 mmol/L (21-32) Anion Gap 11 (6-14) Blood Urea Nitrogen 49 mg/dL (8-26) Creatinine 0.9 mg/dL (0.7-1.3) Estimated GFR (Cockcroft-Gault) 89.3 BUN/Creatinine Ratio 54 (6-20) Glucose Level 155 mg/dL (70-99) Calcium Level 8.1 mg/dL (8.5-10.1) Total Bilirubin 0.3 mg/dL (0.2-1.0) Aspartate Amino Transf (AST/SGOT) 23 U/L (15-37) Alanine Aminotransferase (ALT/SGPT) 66 U/L (16-63) Alkaline Phosphatase 53 U/L (46-116) Troponin I High Sensitivity 15 ng/L (4-75) Total Protein 6.2 g/dL (6.4-8.2) Albumin 3.0 g/dL (3.4-5.0) Albumin/Globulin Ratio 0.9 (1.0-1.7) Lipase 144 U/L (73-393) SARS-CoV-2 Antigen (Rapid) Negative (NEGATIVE) Influenza Type A Antigen Negative (NEGATIVE) Influenza Type B Antigen Negative (NEGATIVE) Prothrombin Time 13.0 SEC (11.7-14.0) Prothromb Time International Ratio 1.0 (0.8-1.1) Activated Partial Thromboplast Time 30 SEC (24-38) Test 12/21/20 17:30 Urine Color Yellow Urine Clarity Cloudy Urine pH 5.5 (<5.0-8.0) Urine Specific [place] 1.025 (1.000-1.030) Urine Protein Negative mg/dL (NEG-TRACE) Urine Glucose (UA) Negative mg/dL (NEG) Urine Ketones (Stick) Negative mg/dL (NEG) Urine Blood Negative (NEG) Urine Nitrite Negative (NEG) Urine Bilirubin Negative (NEG) Urine Urobilinogen Dipstick 1.0 mg/dL (0.2 mg/dL) Urine Leukocyte Esterase Negative (NEG) Urine RBC 0 /HPF (0-2) Urine WBC Rare /HPF (0-4) Urine Squamous Epithelial Cells Few /LPF Urine Bacteria 0 /HPF (0-FEW) Urine Opiates Screen Neg (NEG) Urine Methadone Screen Neg (NEG) Urine Barbiturates Neg (NEG) Urine Phencyclidine Screen Neg (NEG) Urine Amphetamine/Methamphetamine Pos (NEG) Urine Benzodiazepines Screen Neg (NEG) Urine Cocaine Screen Neg (NEG) Urine Cannabinoids Screen Neg (NEG) Urine Ethyl Alcohol Neg (NEG) Laboratory Tests Test 12/21/20 14:57 12/21/20 15:44 12/21/20 16:00 12/21/20 16:30 White Blood Count 9.9 x10^3/uL (4.0-11.0) Red Blood Count 3.75 x10^6/uL (4.30-5.70) Hemoglobin 10.5 g/dL (13.0-17.5) Hematocrit 30.7 % (39.0-53.0) Mean Corpuscular Volume 82 fL (79-100) Mean Corpuscular Hemoglobin 28 pg (25-35) Mean Corpuscular Hemoglobin Concent 34 g/dL (31-37) Red Cell Distribution Width 13.7 % (11.5-14.5) Platelet Count 273 x10^3/uL (140-400) Neutrophils (%) (Auto) 68 % (31-73) Lymphocytes (%) (Auto) 25 % (24-48) Monocytes (%) (Auto) 7 % (0-9) Eosinophils (%) (Auto) 0 % (0-3) Basophils (%) (Auto) 0 % (0-3) Neutrophils # (Auto) 6.7 x10^3/uL (1.8-7.7) Lymphocytes # (Auto) 2.4 x10^3/uL (1.0-4.8) Monocytes # (Auto) 0.7 x10^3/uL (0.0-1.1) Eosinophils # (Auto) 0.0 x10^3/uL (0.0-0.7) Basophils # (Auto) 0.0 x10^3/uL (0.0-0.2) Sodium Level 141 mmol/L (136-145) Potassium Level 3.8 mmol/L (3.5-5.1) Chloride Level 107 mmol/L (98-107) Carbon Dioxide Level 23 mmol/L (21-32) Anion Gap 11 (6-14) Blood Urea Nitrogen 49 mg/dL (8-26) Creatinine 0.9 mg/dL (0.7-1.3) Estimated GFR (Cockcroft-Gault) 89.3 BUN/Creatinine Ratio 54 (6-20) Glucose Level 155 mg/dL (70-99) Calcium Level 8.1 mg/dL (8.5-10.1) Total Bilirubin 0.3 mg/dL (0.2-1.0) Aspartate Amino Transf (AST/SGOT) 23 U/L (15-37) Alanine Aminotransferase (ALT/SGPT) 66 U/L (16-63) Alkaline Phosphatase 53 U/L (46-116) Troponin I High Sensitivity 15 ng/L (4-75) Total Protein 6.2 g/dL (6.4-8.2) Albumin 3.0 g/dL (3.4-5.0) Albumin/Globulin Ratio 0.9 (1.0-1.7) Lipase 144 U/L (73-393) SARS-CoV-2 Antigen (Rapid) Negative (NEGATIVE) Influenza Type A Antigen Negative (NEGATIVE) Influenza Type B Antigen Negative (NEGATIVE) Prothrombin Time 13.0 SEC (11.7-14.0) Prothromb Time International Ratio 1.0 (0.8-1.1) Activated Partial Thromboplast Time 30 SEC (24-38) Test 12/21/20 17:30 Urine Color Yellow Urine Clarity Cloudy Urine pH 5.5 (<5.0-8.0) Urine Specific [place] 1.025 (1.000-1.030) Urine Protein Negative mg/dL (NEG-TRACE) Urine Glucose (UA) Negative mg/dL (NEG) Urine Ketones (Stick) Negative mg/dL (NEG) Urine Blood Negative (NEG) Urine Nitrite Negative (NEG) Urine Bilirubin Negative (NEG) Urine Urobilinogen Dipstick 1.0 mg/dL (0.2 mg/dL) Urine Leukocyte Esterase Negative (NEG) Urine RBC 0 /HPF (0-2) Urine WBC Rare /HPF (0-4) Urine Squamous Epithelial Cells Few /LPF Urine Bacteria 0 /HPF (0-FEW) Urine Opiates Screen Neg (NEG) Urine Methadone Screen Neg (NEG) Urine Barbiturates Neg (NEG) Urine Phencyclidine Screen Neg (NEG) Urine Amphetamine/Methamphetamine Pos (NEG) Urine Benzodiazepines Screen Neg (NEG) Urine Cocaine Screen Neg (NEG) Urine Cannabinoids Screen Neg (NEG) Urine Ethyl Alcohol Neg (NEG) Assessment/Plan Assessment/Plan swelling, SOA, syncope---defer to IPC Possible psbo--having loose stools, ileus possible--will repeat XR SHUN VALDEZ [employer] Dec 22, 2020 10:03
--- NOTE | 2020-12-22 10:12 | PDOC2 ---
HUMERA EMMANUEL [employer]ER 12/22/20 1012: CARDIAC CONSULT DATE OF CONSULT Date of Consult DATE: 12/22/20 TIME: 10:02 REASON FOR CONSULT Reason for Consult: CHF REFERRING PHYSICIAN Referring Physician: Dr. Aguayo SOURCE Source: Chart review, Patient HISTORY OF PRESENT ILLNESS HISTORY OF PRESENT ILLNESS This is a 50 yo male who presented secondary to weakness, shortness of breath, and dizziness. Reports previous hospitalization for CHF about 3-4 years ago. Was supposed to start medications for his heart, but unfortunately did not get these filled. Patient reports his CHF resolved so he didnt think he needed the meds. Reports he has been short of breath for the last month or so. Has progressively worsened. This weekend was much worse and was short of breath at rest. Reports he gets dizzy when he feels short of breath. Reports he got up quickly and felt dizzy and ended up falling into a doorway is his house. He denies any LOC or injury. PAST MEDICAL HISTORY Cardiovascular: CHF, HTN Pulmonary: No pertinent hx Heme/Onc: No pertinent hx Psych: No pertinent hx PAST SURGICAL HISTORY Past Surgical History: No pertinent history FAMILY HISTORY Family History: Hypertension SOCIAL HISTORY Smoke: No ALCOHOL: other (6 beers per day ) Drugs: Crystal meth Lives: with Family CURRENT MEDICATIONS CURRENT MEDICATIONS Current Medications Medications (Trade) Dose Ordered Sig/Bishnu Route PRN Reason Start Time Stop Time Status Last Admin Dose Admin Sodium Chloride 1,000 ml @ 1,000 mls/hr Q1H IV 12/21/20 15:45 12/21/20 16:44 DC 12/21/20 15:51 Sodium Chloride 1,000 ml @ 1,000 mls/hr 1X ONCE IV 12/21/20 18:00 12/21/20 18:59 DC 12/21/20 19:21 Iohexol (Omnipaque 300 Mg/ml) 75 ml 1X ONCE IV 12/21/20 18:00 12/21/20 18:01 DC 12/21/20 18:59 Ondansetron HCl (Zofran) 4 mg 1X ONCE IVP 12/21/20 19:00 12/21/20 19:01 DC 12/21/20 18:47 Famotidine (Pepcid Vial) 20 mg 1X ONCE IVP 12/21/20 19:00 12/21/20 19:01 DC 12/21/20 18:50 ALLERGIES ALLERGIES: Coded Allergies: No Known Drug Allergies (Unverified , 12/21/20) ROS Review of System 14 point ROS conducted with pertinent positives noted above in HPI ENDOCRINE: No: Palpitations PHYSICAL EXAM General: Alert, Oriented X3, Cooperative, No acute distress HEENT: Atraumatic Lungs: Other (diminished bases) Heart: Regular rate Abdomen: Soft, No tenderness Extremities: Other (1+ bilateral LE edema ) Skin: No breakdown, No significant lesion Neuro: Normal speech, Sensation intact Psych/Mental Status: Mental status NL, Mood NL MUSCULOSKELETAL: Osteoarthritic changes both hands VITALS/I&O VITALS/I&O: Vital Signs Date Time Temp Pulse Resp B/P (MAP) Pulse Ox O2 Delivery O2 Flow Rate FiO2 12/22/20 07:00 97.6 94 18 144/89 (107) 98 Nasal Cannula 2.0 97.6 I & O 12/21/20 12/21/20 12/22/20 15:00 23:00 07:00 Intake Total 1000 ml 0 ml Balance 1000 ml 0 ml LABS Lab: Laboratory Tests Test 12/21/20 14:57 12/21/20 15:44 12/21/20 16:00 12/21/20 16:30 White Blood Count 9.9 x10^3/uL (4.0-11.0) Red Blood Count 3.75 x10^6/uL (4.30-5.70) L Hemoglobin 10.5 g/dL (13.0-17.5) L Hematocrit 30.7 % (39.0-53.0) L Mean Corpuscular Volume 82 fL (79-100) Mean Corpuscular Hemoglobin 28 pg (25-35) Mean Corpuscular Hemoglobin Concent 34 g/dL (31-37) Red Cell Distribution Width 13.7 % (11.5-14.5) Platelet Count 273 x10^3/uL (140-400) Neutrophils (%) (Auto) 68 % (31-73) Lymphocytes (%) (Auto) 25 % (24-48) Monocytes (%) (Auto) 7 % (0-9) Eosinophils (%) (Auto) 0 % (0-3) Basophils (%) (Auto) 0 % (0-3) Neutrophils # (Auto) 6.7 x10^3/uL (1.8-7.7) Lymphocytes # (Auto) 2.4 x10^3/uL (1.0-4.8) Monocytes # (Auto) 0.7 x10^3/uL (0.0-1.1) Eosinophils # (Auto) 0.0 x10^3/uL (0.0-0.7) Basophils # (Auto) 0.0 x10^3/uL (0.0-0.2) Sodium Level 141 mmol/L (136-145) Potassium Level 3.8 mmol/L (3.5-5.1) Chloride Level 107 mmol/L (98-107) Carbon Dioxide Level 23 mmol/L (21-32) Anion Gap 11 (6-14) Blood Urea Nitrogen 49 mg/dL (8-26) H Creatinine 0.9 mg/dL (0.7-1.3) Estimated GFR (Cockcroft-Gault) 89.3 BUN/Creatinine Ratio 54 (6-20) H Glucose Level 155 mg/dL (70-99) H Calcium Level 8.1 mg/dL (8.5-10.1) L Total Bilirubin 0.3 mg/dL (0.2-1.0) Aspartate Amino Transferase (AST) 23 U/L (15-37) Alanine Aminotransferase (ALT) 66 U/L (16-63) H Alkaline Phosphatase 53 U/L (46-116) Troponin I High Sensitivity 15 ng/L (4-75) Total Protein 6.2 g/dL (6.4-8.2) L Albumin 3.0 g/dL (3.4-5.0) L Albumin/Globulin Ratio 0.9 (1.0-1.7) L Lipase 144 U/L (73-393) SARS-CoV-2 Antigen (Rapid) Negative (NEGATIVE) Influenza Type A Antigen Negative (NEGATIVE) Influenza Type B Antigen Negative (NEGATIVE) Prothrombin Time 13.0 SEC (11.7-14.0) Prothrombin Time INR 1.0 (0.8-1.1) Activated Partial Thromboplast Time 30 SEC (24-38) Test 12/21/20 17:30 Urine Color Yellow Urine Clarity Cloudy Urine pH 5.5 (<5.0-8.0) Urine Specific [place] 1.025 (1.000-1.030) Urine Protein Negative mg/dL (NEG-TRACE) Urine Glucose (UA) Negative mg/dL (NEG) Urine Ketones (Stick) Negative mg/dL (NEG) Urine Blood Negative (NEG) Urine Nitrite Negative (NEG) Urine Bilirubin Negative (NEG) Urine Urobilinogen Dipstick 1.0 mg/dL (0.2 mg/dL) Urine Leukocyte Esterase Negative (NEG) Urine RBC 0 /HPF (0-2) Urine WBC Rare /HPF (0-4) Urine Squamous Epithelial Cells Few /LPF Urine Bacteria 0 /HPF (0-FEW) Urine Opiates Screen Neg (NEG) Urine Methadone Screen Neg (NEG) Urine Barbiturates Neg (NEG) Urine Phencyclidine Screen Neg (NEG) Urine Amphetamine/Methamphetamine Pos (NEG) Urine Benzodiazepines Screen Neg (NEG) Urine Cocaine Screen Neg (NEG) Urine Cannabinoids Screen Neg (NEG) Urine Ethyl Alcohol Neg (NEG) Laboratory Tests 12/21/20 14:57 Laboratory Tests 12/21/20 14:57 ASSESSMENT/PLAN ASSESSMENT/PLAN 1 . Dizziness, near syncope; CT head without acute findings 2. Abdominal pain, nausea, diarrhea; CT with possible SBO 3. Mild acute on chronic probable diastolic CHF 4. Accelerated hypertension; now controlled 5. Hyperglycemia 6. Substance abuse; UDS + methamphetamines 7. ETOH overuse Recommendations Will give dose of IV Lasix BNP level Echo to assess LV systolic function TSH, Lipids, A1c BP control; lisinopril added. Up titrate as warranted Supportive care Consider outpatient ischemic evaluation IGNACIO TESFAYE MD 12/22/20 1700: CARDIAC CONSULT ASSESSMENT/PLAN ASSESSMENT/PLAN Patient seen and evaluated I agree with our nurse practitioners assessment and plan. Dizziness, near syncope; CT head without acute findings Abdominal pain, nausea, diarrhea; CT with possible SBO Mild acute on chronic probable diastolic CHF. Echo pending. Treatment with Lasix and monitoring of lab. Accelerated hypertension; now controlled Substance abuse; UDS + methamphetamines ETOH abuse HUMERA EMMANUEL APRN Dec 22, 2020 10:12 IGNACIO TESFAYE MD Dec 22, 2020 17:00
[2020-12-22 11:00] VITALS: BP 139/85
--- NOTE | 2020-12-22 12:53 | RAD ---
EXAM: XR ABDOMEN COMP ACUTE 12/22/2020 11:38 AM CLINICAL INDICATION: Small bowel obstruction COMPARISON: None TECHNIQUE: AP supine view of the abdomen FINDINGS: Mild gaseous distention of small bowel at the upper limit of normal in caliber. No pneumop eritoneum. Heart is normal size. Lungs are well-expanded and clear. No pleural effusion or pneumothor ax. No acute osseous abnormality. IMPRESSION: Mild gaseous distention of small bowel without definite obstruction. Electronically signed by: Ileana Casanova MD (12/22/2020 12:51 PM) [id number]
[2020-12-22] MEDS: LISINOPRIL 5 MG TABLET. PO SCH (14:34)
[2020-12-22] MEDS: HEPARIN for SUB-Q USE 5,000 UNIT/ML VIAL. SQ SCH ×2 (14:35→22:10)
[2020-12-22 15:00] VITALS: BP 142/88
[2020-12-22] MEDS ORDERED: FUROSEMIDE 40 MG/4 ML VIAL. IVP ONE (15:15)
[2020-12-22] MEDS ORDERED: POTASSIUM CHLORIDE 20 MEQ TABLET.ER. PO ONE (15:15)
--- NOTE | 2020-12-22 16:14 | CARD ---
MR#: [id number] Date of Study: 12/22/2020 Ordering Physician: SONU LOFTON, Referring Physician: SONU LOFTON, Tech: Deisy Preeti, [facility] APPROVED REPORT EXAM: Two-dimensional and M-mode echocardiogram with Doppler and color Doppler. Other Information Quality : AverageHR: 105bpm INDICATION Dyspnea Congestive Heart Failure 2D DIMENSIONS RVDd3.0 (2.9-3.5cm)Left Atrium(2D)3.4 (1.6-4.0cm) IVSd1.2 (0.7-1.1cm)Aortic Root(2D)3.3 (2.0-3.7cm) LVDd5.5 (3.9-5.9cm)LVOT Diameter2.2 (1.8-2.4cm) PWd1.2 (0.7-1.1cm)LVDs3.8 (2.5-4.0cm) FS (%) 30.9 %SV86.2 ml LVEF(%)57.9 (>50%) Aortic Valve AoV Peak Billy.173.1cm/sAoV VTI29.4cm AO Peak GR.12.0mmHgLVOT Peak Billy.134.9cm/s AO Mean GR.6mmHgAVA (VMAX)2.94cm2 Mitral Valve MV E Eaqvmdhp30.6cm/sMV E Peak Gr.5mmHg MV DECEL [id number] A Snrikrqe123.5cm/s MV E Mean Gr.3mmHgE/A Ratio0.6 Pulmonary Valve PV Peak Fhcognuj128.2cm/s Tricuspid Valve TR P. [id number]/sRAP [id number] TR Peak Gr.[id number] LEFT VENTRICLE The left ventricle is normal size. There is mild concentric left ventricular hypertrophy. The left ve ntricular systolic function is normal. The Ejection Fraction is 55-60%. There is normal LV segmental wall motion. Transmitral Doppler flow pattern is Grade I-abnormal relaxation pattern. RIGHT VENTRICLE The right ventricle is normal size. There is normal right ventricular wall thickness. The right ventr icular systolic function is normal. ATRIA The left atrium is borderline dilated. The right atrium size is normal. The interatrial septum is int act with no evidence for an atrial septal defect or patent foramen ovale as noted on 2-D or Doppler i maging. AORTIC VALVE The aortic valve is normal in structure and function. Doppler and Color Flow revealed no significant aortic regurgitation. There is no significant aortic valvular stenosis. Calculated aortic valve area is 3.6 cm2 with maximum pressure gradient of 12 mmHg and mean pressure gradient of 7 mmHg. MITRAL VALVE The mitral valve is normal in structure and function. There is no evidence of mitral valve prolapse. There is no mitral valve stenosis. Doppler and Color-flow revealed trace mitral regurgitation. TRICUSPID VALVE The tricuspid valve is normal in structure and function. Doppler and Color Flow revealed trace tricus pid regurgitation with an estimated PAP of 18 mmHg. There is no tricuspid valve prolapse or vegetatio n. PULMONIC VALVE The pulmonic valve is not well visualized. Doppler and Color Flow revealed trace pulmonic valvular re gurgitation. GREAT VESSELS The aortic root is normal in size. The ascending aorta is normal in size. The IVC is normal in size a nd collapses >50% with inspiration. PERICARDIAL EFFUSION There is no evidence of significant pericardial effusion. Critical Notification Critical Value: No <Conclusion> The left ventricular systolic function is normal. The Ejection Fraction is 55-60%. There is normal LV segmental wall motion. Transmitral Doppler flow pattern is Grade I-abnormal relaxation pattern. Trace mitral regurgitation. Trace tricuspid regurgitation with an estimated PAP of 18 mmHg. There is no evidence of significant pericardial effusion. Signed by : Segun Nettles, Electronically Approved : 12/22/2020 16:14:35
[2020-12-22 18:27] LABS: CHOLESTEROL/HDL RATIO 4.4
[2020-12-22 19:00] VITALS: BP 125/78
[2020-12-22 23:00] VITALS: BP 117/55
[2020-12-23 01:09] LABS: HEMOGLOBIN A1C 5.5 % (4.8-5.6)
[2020-12-23 03:00] VITALS: BP 106/62
[2020-12-23] MEDS: HEPARIN for SUB-Q USE 5,000 UNIT/ML VIAL. SQ SCH ×3 (06:47→22:27)
[2020-12-23 07:00] VITALS: BP 143/87
[2020-12-23] MEDS: SENNOSIDES/DOCUSATE 8.6/50MG TABLET. PO SCH ×3 (07:57→22:24)
[2020-12-23] MEDS: LISINOPRIL 5 MG TABLET. PO SCH (08:51)
[2020-12-23 09:52] LABS: BASO % 0 % (0-3); EOS # 0.2 x10^3/uL (0.0-0.7); EOS % 2 % (0-3); HEMATOCRIT 23.3 % (39.0-53.0); LYMPH # 1.2 x10^3/uL (1.0-4.8); LYMPH % 15 % (24-48); MEAN CORPUSCULAR HEMOGLOBIN 29 pg (25-35); MEAN CORPUSCULAR HGB CONC 34 g/dL (31-37); MEAN CORPUSCULAR VOLUME 83 fL (79-100); MONO # 0.5 x10^3/uL (0.0-1.1); MONO % 7 % (0-9); NEUT # 6.1 x10^3/uL (1.8-7.7); NEUT % 76 % (31-73); PLATELET COUNT 183 x10^3/uL (140-400); RED BLOOD COUNT 2.79 x10^6/uL (4.30-5.70); RED CELL DISTRIBUTION WIDTH 13.9 % (11.5-14.5)
[2020-12-23 10:00] LABS: ALBUMIN 2.8 g/dL (3.4-5.0); ALBUMIN/GLOBULIN RATIO 0.9 (1.0-1.7); CALCIUM 7.7 mg/dL (8.5-10.1); GFR 79.1; POTASSIUM 3.6 mmol/L (3.5-5.1); TOTAL BILIRUBIN 0.4 mg/dL (0.2-1.0)
--- NOTE | 2020-12-23 10:19 | NUR ---
SW following. Discussed with RN, pt from home alone, room air, clear liquid diet. COVID-19 negative. Med Assist following for self pay status. RN advised pt not ready for discharge at this time. SW will continue to follow.
[2020-12-23 11:17] VITALS: BP 162/88
--- NOTE | 2020-12-23 11:40 | PDOC2 ---
GI CONSULT Date of Service: DATE: 12/23/20 TIME: 11:40 Reason For Consult: dark stool, declining Hgb HPI: HPI: 50 y/o male admitted through ER on 12/21. Chart reviewed - had variety of complaints then including weakness, SOA, JACOB, dizziness, near syncope, and diarrhea. Noted w/ possible partial SBO on CT - surgery following for this. Cardiology following for probable CHF and accelerated HTN. Admitting Hgb 10.5 on 12/21, down to 8 today. BUN was elevated (49) - normal now. Tox screen +amphetamines. BNP was normal. Reports of "dark" stools - we are asked to see re: this. Was started on pantoprazole. Tolerating clear liquid diet. He is not the greatest historian. Says dark stools/diarrhea ("watery") started after he was admitted. No h/o this at home. Currently feels like he needs to take deep breaths. H/o acid reflux - takes Pepto-Bismol frequently for this. Denies h/o anemia. Denies dysphagia, n/v, abd pain, constipation, hematochezia, change in appetite, and weight loss. Other notes mentions hit abdomen on door when fell at home, also mild nausea on day of admission. No previous EGD or colonoscopy. No GB, liver, pancreas, or PUD history. Fatty liver on CT. Denies NSAID use. H/o non-compliance. PMH: PMH: CHF, HTN FH: Family History: No pertinent hx (denies GI cancers) Social History: Smoke: No ALCOHOL: heavy (6 pack daily) Drugs: Crystal meth ROS: GEN: Denies fevers, chills, sweats HEENT: Denies blurred vision, sore throat CV: Denies chest pain RESP: +SOA GI: Per HPI : Denies hematuria, dysuria ENDO: Denies weight changes NEURO: +dizziness MSK: +neck ache SKIN: Denies jaundice, pruritus Vitals: Vitals: Vital Signs Date Time Temp Pulse Resp B/P (MAP) Pulse Ox O2 Delivery O2 Flow Rate FiO2 12/23/20 11:17 98.0 89 18 162/88 (112) 96 Room Air 98.0 12/22/20 07:00 2.0 Labs: Labs: Laboratory Tests Test 12/22/20 15:30 12/22/20 15:45 12/22/20 17:52 12/23/20 09:35 Triglycerides Level 117 mg/dL (0-150) Cholesterol Level 123 mg/dL (0-200) LDL Cholesterol, Calculated 72 mg/dL (0-100) VLDL Cholesterol, Calculated 23 mg/dL (0-40) Non-HDL Cholesterol Calculated 95 mg/dL (0-129) HDL Cholesterol 28 mg/dL (40-60) Cholesterol/HDL Ratio 4.4 Hemoglobin A1c 5.5 % (4.8-5.6) Thyroid Stimulating Hormone (TSH) 2.944 uIU/mL (0.358-3.74) Glucose (Fingerstick) 110 mg/dL (70-99) White Blood Count 8.0 x10^3/uL (4.0-11.0) Red Blood Count 2.79 x10^6/uL (4.30-5.70) Hemoglobin 8.0 g/dL (13.0-17.5) Hematocrit 23.3 % (39.0-53.0) Mean Corpuscular Volume 83 fL (79-100) Mean Corpuscular Hemoglobin 29 pg (25-35) Mean Corpuscular Hemoglobin Concent 34 g/dL (31-37) Red Cell Distribution Width 13.9 % (11.5-14.5) Platelet Count 183 x10^3/uL (140-400) Neutrophils (%) (Auto) 76 % (31-73) Lymphocytes (%) (Auto) 15 % (24-48) Monocytes (%) (Auto) 7 % (0-9) Eosinophils (%) (Auto) 2 % (0-3) Basophils (%) (Auto) 0 % (0-3) Neutrophils # (Auto) 6.1 x10^3/uL (1.8-7.7) Lymphocytes # (Auto) 1.2 x10^3/uL (1.0-4.8) Monocytes # (Auto) 0.5 x10^3/uL (0.0-1.1) Eosinophils # (Auto) 0.2 x10^3/uL (0.0-0.7) Basophils # (Auto) 0.0 x10^3/uL (0.0-0.2) Sodium Level 139 mmol/L (136-145) Potassium Level 3.6 mmol/L (3.5-5.1) Chloride Level 104 mmol/L (98-107) Carbon Dioxide Level 28 mmol/L (21-32) Anion Gap 7 (6-14) Blood Urea Nitrogen 16 mg/dL (8-26) Creatinine 1.0 mg/dL (0.7-1.3) Estimated GFR (Cockcroft-Gault) 79.1 BUN/Creatinine Ratio 16 (6-20) Glucose Level 130 mg/dL (70-99) Calcium Level 7.7 mg/dL (8.5-10.1) Total Bilirubin 0.4 mg/dL (0.2-1.0) Aspartate Amino Transf (AST/SGOT) 32 U/L (15-37) Alanine Aminotransferase (ALT/SGPT) 66 U/L (16-63) Alkaline Phosphatase 52 U/L (46-116) Total Protein 6.0 g/dL (6.4-8.2) Albumin 2.8 g/dL (3.4-5.0) Albumin/Globulin Ratio 0.9 (1.0-1.7) Allergies: Coded Allergies: No Known Drug Allergies (Unverified , 12/21/20) Medications: Current Medications Medications (Trade) Dose Ordered Sig/Bishnu Route PRN Reason Start Time Stop Time Status Last Admin Dose Admin Heparin Sodium (Porcine) (Heparin Sodium) 5,000 unit Q8HRS SQ 12/22/20 14:00 12/23/20 06:47 Furosemide (Lasix) 40 mg 1X ONCE IVP 12/22/20 15:15 12/22/20 15:16 DC 12/22/20 16:29 Potassium Chloride (Klor-Con) 20 meq 1X ONCE PO 12/22/20 15:15 12/22/20 15:16 DC 12/22/20 16:29 Imaging: Imaging: Echo 12/22 <Conclusion> The left ventricular systolic function is normal. The Ejection Fraction is 55-60%. There is normal LV segmental wall motion. Transmitral Doppler flow pattern is Grade I-abnormal relaxation pattern. Trace mitral regurgitation. Trace tricuspid regurgitation with an estimated PAP of 18 mmHg. There is no evidence of significant pericardial effusion. AAS 12/22 IMPRESSION: Mild gaseous distention of small bowel without definite obstruction. Head/C-spine CT 12/21 Impression: No acute findings. Clinical correlation suggested. CXR 12/21 IMPRESSION: No acute pulmonary finding. CT A/P 12/21 Impression: 1. Fatty infiltration of the liver. 2. Dilated loops of small bowel especially on the left suggests a partial small bowel obstruction. An exact transition zone is not seen. PE: GEN: NAD - was sleeping soundly HEENT: Atraumatic, PERRL LUNGS: CTAB HEART: RRR ABD: quiet BS, soft, non-tender, round/large EXTREMITY: trace edema BLE SKIN: No rashes, no jaundice NEURO/PSYCH: A & O 3 A/P: A/P: Weakness, SOA Diarrhea/dark stools - takes Pepto at home H/o CHF, non-compliance, substance abuse Anemia - Hgb drifting Abnormal CT w/ possible SBO Acid reflux - takes Pepto CRC screen - none Fatty liver COVID negative -- Varying history. Check anemia parameters. Agree w/ PPI. May need to consider EGD - will review w/ Dr. Mcmullen. Consider stool studies. Needs outpt screening colonoscopy. ARABELLA NAVARRO Dec 23, 2020 11:40
--- NOTE | 2020-12-23 12:38 | PDOC ---
CARDIO Progress Notes Date and Time Date of Service 12/23/20 Time of Evaluation 1230 Subjective Subjective: No Chest Pain, No shortness of breath, No Palpitations Vitals Vitals Vital Signs Date Time Temp Pulse Resp B/P (MAP) Pulse Ox O2 Delivery O2 Flow Rate FiO2 12/23/20 11:17 98.0 89 18 162/88 (112) 96 Room Air 98.0 12/22/20 07:00 2.0 Weight Weight [ ] Input and Output Intake and Output Intake and Output 12/23/20 07:00 Intake Total 520 ml Balance 520 ml Intake Oral 520 ml # Voids 4 Laboratory Labs Laboratory Tests Test 12/22/20 15:30 12/22/20 15:45 12/22/20 17:52 12/23/20 09:35 Triglycerides Level 117 mg/dL (0-150) Cholesterol Level 123 mg/dL (0-200) LDL Cholesterol, Calculated 72 mg/dL (0-100) VLDL Cholesterol, Calculated 23 mg/dL (0-40) Non-HDL Cholesterol Calculated 95 mg/dL (0-129) HDL Cholesterol 28 mg/dL (40-60) Cholesterol/HDL Ratio 4.4 Hemoglobin A1c 5.5 % (4.8-5.6) Thyroid Stimulating Hormone (TSH) 2.944 uIU/mL (0.358-3.74) Glucose (Fingerstick) 110 mg/dL (70-99) White Blood Count 8.0 x10^3/uL (4.0-11.0) Red Blood Count 2.79 x10^6/uL (4.30-5.70) Hemoglobin 8.0 g/dL (13.0-17.5) Hematocrit 23.3 % (39.0-53.0) Mean Corpuscular Volume 83 fL (79-100) Mean Corpuscular Hemoglobin 29 pg (25-35) Mean Corpuscular Hemoglobin Concent 34 g/dL (31-37) Red Cell Distribution Width 13.9 % (11.5-14.5) Platelet Count 183 x10^3/uL (140-400) Neutrophils (%) (Auto) 76 % (31-73) Lymphocytes (%) (Auto) 15 % (24-48) Monocytes (%) (Auto) 7 % (0-9) Eosinophils (%) (Auto) 2 % (0-3) Basophils (%) (Auto) 0 % (0-3) Neutrophils # (Auto) 6.1 x10^3/uL (1.8-7.7) Lymphocytes # (Auto) 1.2 x10^3/uL (1.0-4.8) Monocytes # (Auto) 0.5 x10^3/uL (0.0-1.1) Eosinophils # (Auto) 0.2 x10^3/uL (0.0-0.7) Basophils # (Auto) 0.0 x10^3/uL (0.0-0.2) Sodium Level 139 mmol/L (136-145) Potassium Level 3.6 mmol/L (3.5-5.1) Chloride Level 104 mmol/L (98-107) Carbon Dioxide Level 28 mmol/L (21-32) Anion Gap 7 (6-14) Blood Urea Nitrogen 16 mg/dL (8-26) Creatinine 1.0 mg/dL (0.7-1.3) Estimated GFR (Cockcroft-Gault) 79.1 BUN/Creatinine Ratio 16 (6-20) Glucose Level 130 mg/dL (70-99) Calcium Level 7.7 mg/dL (8.5-10.1) Iron Level 37 ug/dL (65-175) Total Iron Binding Capacity 286 ug/dL (250-450) Iron Saturation 13 % (15-34) Total Bilirubin 0.4 mg/dL (0.2-1.0) Aspartate Amino Transf (AST/SGOT) 32 U/L (15-37) Alanine Aminotransferase (ALT/SGPT) 66 U/L (16-63) Alkaline Phosphatase 52 U/L (46-116) Total Protein 6.0 g/dL (6.4-8.2) Albumin 2.8 g/dL (3.4-5.0) Albumin/Globulin Ratio 0.9 (1.0-1.7) Vitamin B12 Level 956 pg/mL (247-911) Physical Exam HEENT: Neck Supple W Full Motion Chest: Symmetric LUNGS: Clear to Auscultation Heart: RRR Abdomen: Soft N/T Extremities: No Edema Neurology: alert, oriented Assessment Assessment 1 . Dizziness, near syncope; CT head without acute findings 2. Abdominal pain, nausea, diarrhea; CT with possible SBO 3. Mild acute on chronic diastolic CHF; Echo with preserved LV systolic function. NT pro BNP WNL. s/p IV Lasix 4. Accelerated hypertension; now controlled 5. Hyperglycemia; A1c 5.5 6. Substance abuse; UDS + methamphetamines 7. ETOH overuse Recommendations Supportive care Follow GI, surgical recs Consider outpatient ischemic evaluation Justicifation of Admission Dx: Justifications for Admission: Justification of Admission Dx: Yes Comments: Acute on chronic diastolic CHF HUMERA EMMANUEL APRN Dec 23, 2020 12:38
--- NOTE | 2020-12-23 13:18 | PDOC ---
SHUN VALDEZ [employer] 12/23/20 1318: SURGICAL PROGRESS NOTE DATE: 12/23/20 TIME: 13:13 Subjective no abdominal pain no n/v tolerating clears yesterday started dark stools Vital Signs Vital Signs Date Time Temp Pulse Resp B/P (MAP) Pulse Ox O2 Delivery O2 Flow Rate FiO2 12/23/20 11:17 98.0 89 18 162/88 (112) 96 Room Air 98.0 12/22/20 07:00 2.0 I&O Intake and Output 12/23/20 07:00 Intake Total 520 ml Balance 520 ml Intake Oral 520 ml # Voids 4 General: Alert, Oriented X3, Cooperative Abdomen: Soft, No tenderness Labs Laboratory Tests Test 12/21/20 14:57 12/21/20 15:44 12/21/20 16:00 12/21/20 16:30 White Blood Count 9.9 x10^3/uL (4.0-11.0) Red Blood Count 3.75 x10^6/uL (4.30-5.70) Hemoglobin 10.5 g/dL (13.0-17.5) Hematocrit 30.7 % (39.0-53.0) Mean Corpuscular Volume 82 fL (79-100) Mean Corpuscular Hemoglobin 28 pg (25-35) Mean Corpuscular Hemoglobin Concent 34 g/dL (31-37) Red Cell Distribution Width 13.7 % (11.5-14.5) Platelet Count 273 x10^3/uL (140-400) Neutrophils (%) (Auto) 68 % (31-73) Lymphocytes (%) (Auto) 25 % (24-48) Monocytes (%) (Auto) 7 % (0-9) Eosinophils (%) (Auto) 0 % (0-3) Basophils (%) (Auto) 0 % (0-3) Neutrophils # (Auto) 6.7 x10^3/uL (1.8-7.7) Lymphocytes # (Auto) 2.4 x10^3/uL (1.0-4.8) Monocytes # (Auto) 0.7 x10^3/uL (0.0-1.1) Eosinophils # (Auto) 0.0 x10^3/uL (0.0-0.7) Basophils # (Auto) 0.0 x10^3/uL (0.0-0.2) Sodium Level 141 mmol/L (136-145) Potassium Level 3.8 mmol/L (3.5-5.1) Chloride Level 107 mmol/L (98-107) Carbon Dioxide Level 23 mmol/L (21-32) Anion Gap 11 (6-14) Blood Urea Nitrogen 49 mg/dL (8-26) Creatinine 0.9 mg/dL (0.7-1.3) Estimated GFR (Cockcroft-Gault) 89.3 BUN/Creatinine Ratio 54 (6-20) Glucose Level 155 mg/dL (70-99) Calcium Level 8.1 mg/dL (8.5-10.1) Total Bilirubin 0.3 mg/dL (0.2-1.0) Aspartate Amino Transf (AST/SGOT) 23 U/L (15-37) Alanine Aminotransferase (ALT/SGPT) 66 U/L (16-63) Alkaline Phosphatase 53 U/L (46-116) Troponin I High Sensitivity 15 ng/L (4-75) Total Protein 6.2 g/dL (6.4-8.2) Albumin 3.0 g/dL (3.4-5.0) Albumin/Globulin Ratio 0.9 (1.0-1.7) Lipase 144 U/L (73-393) Coronavirus (COVID-19)(PCR) Not detected (NOT DETECTD) SARS-CoV-2 Antigen (Rapid) Negative (NEGATIVE) Influenza Type A Antigen Negative (NEGATIVE) Influenza Type B Antigen Negative (NEGATIVE) Prothrombin Time 13.0 SEC (11.7-14.0) Prothromb Time International Ratio 1.0 (0.8-1.1) Activated Partial Thromboplast Time 30 SEC (24-38) Test 12/21/20 17:30 12/22/20 10:35 12/22/20 15:30 12/22/20 15:45 Urine Color Yellow Urine Clarity Cloudy Urine pH 5.5 (<5.0-8.0) Urine Specific [place] 1.025 (1.000-1.030) Urine Protein Negative mg/dL (NEG-TRACE) Urine Glucose (UA) Negative mg/dL (NEG) Urine Ketones (Stick) Negative mg/dL (NEG) Urine Blood Negative (NEG) Urine Nitrite Negative (NEG) Urine Bilirubin Negative (NEG) Urine Urobilinogen Dipstick 1.0 mg/dL (0.2 mg/dL) Urine Leukocyte Esterase Negative (NEG) Urine RBC 0 /HPF (0-2) Urine WBC Rare /HPF (0-4) Urine Squamous Epithelial Cells Few /LPF Urine Bacteria 0 /HPF (0-FEW) Urine Opiates Screen Neg (NEG) Urine Methadone Screen Neg (NEG) Urine Barbiturates Neg (NEG) Urine Phencyclidine Screen Neg (NEG) Urine Amphetamine/Methamphetamine Pos (NEG) Urine Benzodiazepines Screen Neg (NEG) Urine Cocaine Screen Neg (NEG) Urine Cannabinoids Screen Neg (NEG) Urine Ethyl Alcohol Neg (NEG) RN-Ece-I-Type Natriuretic Peptide 20 pg/mL (0-124) Triglycerides Level 117 mg/dL (0-150) Cholesterol Level 123 mg/dL (0-200) LDL Cholesterol, Calculated 72 mg/dL (0-100) VLDL Cholesterol, Calculated 23 mg/dL (0-40) Non-HDL Cholesterol Calculated 95 mg/dL (0-129) HDL Cholesterol 28 mg/dL (40-60) Cholesterol/HDL Ratio 4.4 Hemoglobin A1c 5.5 % (4.8-5.6) Thyroid Stimulating Hormone (TSH) 2.944 uIU/mL (0.358-3.74) Test 12/22/20 17:52 12/23/20 09:35 Glucose (Fingerstick) 110 mg/dL (70-99) White Blood Count 8.0 x10^3/uL (4.0-11.0) Red Blood Count 2.79 x10^6/uL (4.30-5.70) Hemoglobin 8.0 g/dL (13.0-17.5) Hematocrit 23.3 % (39.0-53.0) Mean Corpuscular Volume 83 fL (79-100) Mean Corpuscular Hemoglobin 29 pg (25-35) Mean Corpuscular Hemoglobin Concent 34 g/dL (31-37) Red Cell Distribution Width 13.9 % (11.5-14.5) Platelet Count 183 x10^3/uL (140-400) Neutrophils (%) (Auto) 76 % (31-73) Lymphocytes (%) (Auto) 15 % (24-48) Monocytes (%) (Auto) 7 % (0-9) Eosinophils (%) (Auto) 2 % (0-3) Basophils (%) (Auto) 0 % (0-3) Neutrophils # (Auto) 6.1 x10^3/uL (1.8-7.7) Lymphocytes # (Auto) 1.2 x10^3/uL (1.0-4.8) Monocytes # (Auto) 0.5 x10^3/uL (0.0-1.1) Eosinophils # (Auto) 0.2 x10^3/uL (0.0-0.7) Basophils # (Auto) 0.0 x10^3/uL (0.0-0.2) Sodium Level 139 mmol/L (136-145) Potassium Level 3.6 mmol/L (3.5-5.1) Chloride Level 104 mmol/L (98-107) Carbon Dioxide Level 28 mmol/L (21-32) Anion Gap 7 (6-14) Blood Urea Nitrogen 16 mg/dL (8-26) Creatinine 1.0 mg/dL (0.7-1.3) Estimated GFR (Cockcroft-Gault) 79.1 BUN/Creatinine Ratio 16 (6-20) Glucose Level 130 mg/dL (70-99) Calcium Level 7.7 mg/dL (8.5-10.1) Iron Level 37 ug/dL (65-175) Total Iron Binding Capacity 286 ug/dL (250-450) Iron Saturation 13 % (15-34) Total Bilirubin 0.4 mg/dL (0.2-1.0) Aspartate Amino Transf (AST/SGOT) 32 U/L (15-37) Alanine Aminotransferase (ALT/SGPT) 66 U/L (16-63) Alkaline Phosphatase 52 U/L (46-116) Total Protein 6.0 g/dL (6.4-8.2) Albumin 2.8 g/dL (3.4-5.0) Albumin/Globulin Ratio 0.9 (1.0-1.7) Vitamin B12 Level 956 pg/mL (247-911) Laboratory Tests Test 12/22/20 15:30 12/22/20 15:45 12/22/20 17:52 12/23/20 09:35 Triglycerides Level 117 mg/dL (0-150) Cholesterol Level 123 mg/dL (0-200) LDL Cholesterol, Calculated 72 mg/dL (0-100) VLDL Cholesterol, Calculated 23 mg/dL (0-40) Non-HDL Cholesterol Calculated 95 mg/dL (0-129) HDL Cholesterol 28 mg/dL (40-60) Cholesterol/HDL Ratio 4.4 Hemoglobin A1c 5.5 % (4.8-5.6) Thyroid Stimulating Hormone (TSH) 2.944 uIU/mL (0.358-3.74) Glucose (Fingerstick) 110 mg/dL (70-99) White Blood Count 8.0 x10^3/uL (4.0-11.0) Red Blood Count 2.79 x10^6/uL (4.30-5.70) Hemoglobin 8.0 g/dL (13.0-17.5) Hematocrit 23.3 % (39.0-53.0) Mean Corpuscular Volume 83 fL (79-100) Mean Corpuscular Hemoglobin 29 pg (25-35) Mean Corpuscular Hemoglobin Concent 34 g/dL (31-37) Red Cell Distribution Width 13.9 % (11.5-14.5) Platelet Count 183 x10^3/uL (140-400) Neutrophils (%) (Auto) 76 % (31-73) Lymphocytes (%) (Auto) 15 % (24-48) Monocytes (%) (Auto) 7 % (0-9) Eosinophils (%) (Auto) 2 % (0-3) Basophils (%) (Auto) 0 % (0-3) Neutrophils # (Auto) 6.1 x10^3/uL (1.8-7.7) Lymphocytes # (Auto) 1.2 x10^3/uL (1.0-4.8) Monocytes # (Auto) 0.5 x10^3/uL (0.0-1.1) Eosinophils # (Auto) 0.2 x10^3/uL (0.0-0.7) Basophils # (Auto) 0.0 x10^3/uL (0.0-0.2) Sodium Level 139 mmol/L (136-145) Potassium Level 3.6 mmol/L (3.5-5.1) Chloride Level 104 mmol/L (98-107) Carbon Dioxide Level 28 mmol/L (21-32) Anion Gap 7 (6-14) Blood Urea Nitrogen 16 mg/dL (8-26) Creatinine 1.0 mg/dL (0.7-1.3) Estimated GFR (Cockcroft-Gault) 79.1 BUN/Creatinine Ratio 16 (6-20) Glucose Level 130 mg/dL (70-99) Calcium Level 7.7 mg/dL (8.5-10.1) Iron Level 37 ug/dL (65-175) Total Iron Binding Capacity 286 ug/dL (250-450) Iron Saturation 13 % (15-34) Total Bilirubin 0.4 mg/dL (0.2-1.0) Aspartate Amino Transf (AST/SGOT) 32 U/L (15-37) Alanine Aminotransferase (ALT/SGPT) 66 U/L (16-63) Alkaline Phosphatase 52 U/L (46-116) Total Protein 6.0 g/dL (6.4-8.2) Albumin 2.8 g/dL (3.4-5.0) Albumin/Globulin Ratio 0.9 (1.0-1.7) Vitamin B12 Level 956 pg/mL (247-911) Problem List Problems Medical Problems: (1) Partial small bowel obstruction Status: Acute Assessment/Plan on signs of obstruction chf anemia, dark stools-gi following Justicifation of Admission Dx: Justifications for Admission: Justification of Admission Dx: Yes Comments: kisha farris SCOTT D MD 12/24/20 0812: SURGICAL PROGRESS NOTE Assessment/Plan Reviewed, no apparent obstruction, GI following; we will sign off, please call if needed in the future SHUN VALDEZ APRN Dec 23, 2020 13:18 ALBERTO BRANNON MD Dec 24, 2020 08:12
[2020-12-23 15:22] VITALS: BP 129/78
--- NOTE | 2020-12-23 16:04 | PDOC ---
[facility] PROGRESS NOTE Date of Service DOS: DATE: 12/23/20 TIME: 16:01 Chief Complaint Chief Complaint Partial small bowel obstruction, shortness of breath easy fatigue secondary to possible CHF exacerbation, suspected GI bleed -Patient presenting after possible syncopal episode into the doorway. Has been having issues with swelling of feet and shortness of breath lately -After fall onto the doorway he presented here found a partial small bowel obstruction. Patient is having bowel movements still. General surgery following. -His story does seem suspicious for a CHF exacerbation. Will order echo and consult cardiology -Patient denies any home meds none to resume -With history of difficulty catching his breath while sleeping will try BiPAP when asleep -As patient is having bowel movements still he can try some ice chips for now -DVT prophylaxis -Patient reporting some dark-colored stools and he did have two-point hemoglobin drop. Consulted GI. Trend hemoglobins overnight. History of Present Illness History of Present Illness Patient 50-year-old white male presented the emergency room overnight due to worsening shortness of breath weakness dizziness and easy fatigue. Patient thinks he had a syncopal episode at home where he fell onto his doorway and hit his abdomen against the door frame. He said this changed to pretty immediate bruising. Reporting decreased appetite since this episode. Still having bowel movements. Patient presented to the emergency room where imaging showed a partial small bowel obstruction and he was admitted for further treatment. I evaluated the patient elicited Further history patient reports his shortness of breath and easy fatigue is actually been going on for a few months. Says even with minimal exertion he is very out of breath. Does report that he notices his ankles are swollen at night sometimes. Feels like he needs to sleep with his head propped up and that he actually has some difficulty sleeping due to shortness of breath.. Says he is supposed to be taking some sort of heart medicine however not sure what it supposed to be and has not been taking it anyways. He said a previous physician was 1 who recommended he start it but cannot remember the name. 12/23 Patient evaluated and examined at bedside. He is reporting he has some dark stools this morning and actually had some incontinence in bed. He had that she did appear very very dark stool but not apparently black. He did have a two- point hemoglobin drop on the labs, did not receive a ton of fluid yesterday. Will have GI consult. Is still reporting some shortness of breath particularly when getting up out of bed. Cardiology following. PT OT. Plan of care discussed bedside RN Vitals/I&O Vitals/I&O: Vital Signs Date Time Temp Pulse Resp B/P (MAP) Pulse Ox O2 Delivery O2 Flow Rate FiO2 12/23/20 15:22 97.8 93 18 129/78 (95) 98 Room Air 97.8 12/22/20 07:00 2.0 I & O 12/22/20 12/22/20 12/23/20 15:00 23:00 07:00 Intake Total 200 ml 320 ml Balance 200 ml 320 ml Physical Exam General: Alert, Oriented X3, Cooperative Heart: Regular rate Lungs: Clear Abdomen: Soft, No tenderness Extremities: Other (1+ bilateral LE edema ) Skin: No breakdown, No significant lesion Labs Labs: Laboratory Tests Test 12/22/20 17:52 12/23/20 09:35 Glucose (Fingerstick) 110 mg/dL (70-99) White Blood Count 8.0 x10^3/uL (4.0-11.0) Red Blood Count 2.79 x10^6/uL (4.30-5.70) Hemoglobin 8.0 g/dL (13.0-17.5) Hematocrit 23.3 % (39.0-53.0) Mean Corpuscular Volume 83 fL (79-100) Mean Corpuscular Hemoglobin 29 pg (25-35) Mean Corpuscular Hemoglobin Concent 34 g/dL (31-37) Red Cell Distribution Width 13.9 % (11.5-14.5) Platelet Count 183 x10^3/uL (140-400) Neutrophils (%) (Auto) 76 % (31-73) Lymphocytes (%) (Auto) 15 % (24-48) Monocytes (%) (Auto) 7 % (0-9) Eosinophils (%) (Auto) 2 % (0-3) Basophils (%) (Auto) 0 % (0-3) Neutrophils # (Auto) 6.1 x10^3/uL (1.8-7.7) Lymphocytes # (Auto) 1.2 x10^3/uL (1.0-4.8) Monocytes # (Auto) 0.5 x10^3/uL (0.0-1.1) Eosinophils # (Auto) 0.2 x10^3/uL (0.0-0.7) Basophils # (Auto) 0.0 x10^3/uL (0.0-0.2) Sodium Level 139 mmol/L (136-145) Potassium Level 3.6 mmol/L (3.5-5.1) Chloride Level 104 mmol/L (98-107) Carbon Dioxide Level 28 mmol/L (21-32) Anion Gap 7 (6-14) Blood Urea Nitrogen 16 mg/dL (8-26) Creatinine 1.0 mg/dL (0.7-1.3) Estimated GFR (Cockcroft-Gault) 79.1 BUN/Creatinine Ratio 16 (6-20) Glucose Level 130 mg/dL (70-99) Calcium Level 7.7 mg/dL (8.5-10.1) Iron Level 37 ug/dL (65-175) Total Iron Binding Capacity 286 ug/dL (250-450) Iron Saturation 13 % (15-34) Total Bilirubin 0.4 mg/dL (0.2-1.0) Aspartate Amino Transf (AST/SGOT) 32 U/L (15-37) Alanine Aminotransferase (ALT/SGPT) 66 U/L (16-63) Alkaline Phosphatase 52 U/L (46-116) Total Protein 6.0 g/dL (6.4-8.2) Albumin 2.8 g/dL (3.4-5.0) Albumin/Globulin Ratio 0.9 (1.0-1.7) Vitamin B12 Level 956 pg/mL (247-911) Assessment and Plan Assessmemt and Plan Problems Medical Problems: (1) Partial small bowel obstruction Status: Acute Comment Review of Relevant I have reviewed the following items vandana (where applicable) has been applied. Justifications for Admission Other Justification SONU LOFTON MD Dec 23, 2020 16:04
[2020-12-23 19:08] VITALS: BP 105/58
[2020-12-23 22:51] VITALS: BP 118/85
[2020-12-24 03:00] VITALS: BP 116/69
[2020-12-24] MEDS: HEPARIN for SUB-Q USE 5,000 UNIT/ML VIAL. SQ SCH ×2 (06:34→14:00)
[2020-12-24 07:00] VITALS: BP 147/98
[2020-12-24] MEDS ORDERED: PANTOPRAZOLE 40 MG TABLET.DR. PO SCH (07:30)
[2020-12-24 07:36] LABS: HEMATOCRIT 24.1 % (39.0-53.0); HEMOGLOBIN 8.2 g/dL (13.0-17.5); RED BLOOD COUNT 2.87 x10^6/uL (4.30-5.70); RED CELL DISTRIBUTION WIDTH 13.6 % (11.5-14.5); WHITE BLOOD COUNT 6.5 x10^3/uL (4.0-11.0)
[2020-12-24] MEDS: LISINOPRIL 5 MG TABLET. PO SCH (08:18)
[2020-12-24] MEDS: SENNOSIDES/DOCUSATE 8.6/50MG TABLET. PO SCH (08:19)
--- NOTE | 2020-12-24 10:16 | PDOC ---
Date of Service: DATE: 12/24/20 TIME: 10:13 Subjective: Subjective: Light brown stool now - last yesterday. Tolerating diet. Asks to go home. Objective: Objective: 2 stools charted. Stool tests pending. Vital Signs: Vital Signs Date Time Temp Pulse Resp B/P (MAP) Pulse Ox O2 Delivery O2 Flow Rate FiO2 12/24/20 08:18 89 147/98 12/24/20 07:56 Room Air 12/24/20 07:00 97.4 18 98 97.4 Labs: Laboratory Tests Test 12/24/20 06:00 White Blood Count 6.5 x10^3/uL Red Blood Count 2.87 x10^6/uL Hemoglobin 8.2 g/dL Hematocrit 24.1 % Mean Corpuscular Volume 84 fL Mean Corpuscular Hemoglobin 29 pg Mean Corpuscular Hemoglobin Concent 34 g/dL Red Cell Distribution Width 13.6 % Platelet Count 233 x10^3/uL PE: GEN: NAD LUNGS: CTAB HEART: RRR ABD: NABS, S/ND/NT NEURO/PSYCH: A & O 3 A/P: Diarrhea/dark stools - improving, stool tests pending PEDRO - stable, no previous scopes H/o GERD -- Okay to ADAT per GI, DC per primary. Would send on PPI. We'll contact to schedule EGD and colonoscopy as outpt. Justicifation of Admission Dx: Justifications for Admission: Justification of Admission Dx: Yes ARABELLA NAVARRO Dec 24, 2020 10:16
[2020-12-24 11:00] VITALS: BP 128/78
[2020-12-24] MEDS ORDERED: LISI5TAB15 PO (11:54)
[2020-12-24] MEDS ORDERED: PANT40TA77 PO (11:54)
--- NOTE | 2020-12-24 11:59 | PDOC3 ---
[facility]-Dis[facility] Summary Date of Admission: Date of Admission: Dec 21, 2020 Date of Discharge: Date of Discharge: Dec 24, 2020 Admission Diagnosis: Problems: (1) Partial small bowel obstruction (2) SOB (shortness of breath) Discharge Diagnosis: Discharge Diagnosis: Same Consults: Consults: GI, cardiology Procedures: Procedures: EXAM: Two-dimensional and M-mode echocardiogram with Doppler and color Doppler. Other Information Quality : Average HR: 105bpm INDICATION Dyspnea Congestive Heart Failure 2D DIMENSIONS RVDd 3.0 (2.9-3.5cm) Left Atrium(2D) 3.4 (1.6-4.0cm) IVSd 1.2 (0.7-1.1cm) Aortic Root(2D) 3.3 (2.0-3.7cm) LVDd 5.5 (3.9-5.9cm) LVOT Diameter 2.2 (1.8-2.4cm) PWd 1.2 (0.7-1.1cm) LVDs 3.8 (2.5-4.0cm) FS (%) 30.9 % SV 86.2 ml LVEF(%) 57.9 (>50%) Aortic Valve AoV Peak Billy. 173.1cm/s AoV VTI 29.4cm AO Peak GR. 12.0mmHg LVOT Peak Billy. 134.9cm/s AO Mean GR. 6mmHg TERRANCE (VMAX) 2.94cm2 Mitral Valve MV E Velocity 68.6cm/s MV E Peak Gr. 5mmHg MV DECEL TIME 187ms MV A Velocity 108.5cm/s MV E Mean Gr. 3mmHg E/A Ratio 0.6 Pulmonary Valve PV Peak Velocity 102.2cm/s Tricuspid Valve TR P. Velocity 192cm/s RAP ESTIMATE 3mmHg TR Peak Gr. 15mmHg RVSP 18mmHg LEFT VENTRICLE The left ventricle is normal size. There is mild concentric left ventricular hypertrophy. The left ventricular systolic function is normal. The Ejection Fraction is 55-60%. There is normal LV segmental wall motion. Transmitral Doppler flow pattern is Grade I-abnormal relaxation pattern. RIGHT VENTRICLE The right ventricle is normal size. There is normal right ventricular wall thickness. The right ventricular systolic function is normal. ATRIA The left atrium is borderline dilated. The right atrium size is normal. The interatrial septum is intact with no evidence for an atrial septal defect or patent foramen ovale as noted on 2-D or Doppler imaging. AORTIC VALVE The aortic valve is normal in structure and function. Doppler and Color Flow revealed no significant aortic regurgitation. There is no significant aortic valvular stenosis. Calculated aortic valve area is 3.6 cm2 with maximum pressure gradient of 12 mmHg and mean pressure gradient of 7 mmHg. MITRAL VALVE The mitral valve is normal in structure and function. There is no evidence of mitral valve prolapse. There is no mitral valve stenosis. Doppler and Color-flow revealed trace mitral regurgitation. TRICUSPID VALVE The tricuspid valve is normal in structure and function. Doppler and Color Flow revealed trace tricuspid regurgitation with an estimated PAP of 18 mmHg. There is no tricuspid valve prolapse or vegetation. PULMONIC VALVE The pulmonic valve is not well visualized. Doppler and Color Flow revealed trace pulmonic valvular regurgitation. GREAT VESSELS The aortic root is normal in size. The ascending aorta is normal in size. The IVC is normal in size and collapses >50% with inspiration. PERICARDIAL EFFUSION There is no evidence of significant pericardial effusion. Critical Notification Critical Value: No <Conclusion> The left ventricular systolic function is normal. The Ejection Fraction is 55-60%. There is normal LV segmental wall motion. Transmitral Doppler flow pattern is Grade I-abnormal relaxation pattern. Trace mitral regurgitation. Trace tricuspid regurgitation with an estimated PAP of 18 mmHg. There is no evidence of significant pericardial effusion. Signed by : [facility] [facility] Course: Hospital Course: Chief Complaint Partial small bowel obstruction, shortness of breath easy fatigue secondary to possible CHF exacerbation, suspected GI bleed -Patient presenting after possible syncopal episode into the doorway. Has been having issues with swelling of feet and shortness of breath lately -After fall onto the doorway he presented here found a partial small bowel obstruction. Patient is having bowel movements still. General surgery following. -His story does seem suspicious for a CHF exacerbation. Will order echo and co nsult cardiology -Patient denies any home meds none to resume -With history of difficulty catching his breath while sleeping will try BiPAP when asleep -As patient is having bowel movements still he can try some ice chips for now -DVT prophylaxis -Patient reporting some dark-colored stools and he did have two-point hemoglobin drop. Consulted GI. Trend hemoglobins overnight. Stable History of Present Illness History of Present Illness Patient 50-year-old white male presented the emergency room overnight due to worsening shortness of breath weakness dizziness and easy fatigue. Patient thinks he had a syncopal episode at home where he fell onto his doorway and hit his abdomen against the door frame. He said this changed to pretty immediate bruising. Reporting decreased appetite since this episode. Still having bowel movements. Patient presented to the emergency room where imaging showed a partial small bowel obstruction and he was admitted for further treatment. I evaluated the patient elicited Further history patient reports his shortness of breath and easy fatigue is actually been going on for a few months. Says even with minimal exertion he is very out of breath. Does report that he notices his ankles are swollen at night sometimes. Feels like he needs to sleep with his head propped up and that he actually has some difficulty sleeping due to shortness of breath.. Says he is supposed to be taking some sort of heart medicine however not sure what it supposed to be and has not been taking it anyways. He said a previous physician was 1 who recommended he start it but cannot remember the name. 12/23 Patient evaluated and examined at bedside. He is reporting he has some dark stools this morning and actually had some incontinence in bed. He had that she did appear very very dark stool but not apparently black. He did have a two- point hemoglobin drop on the labs, did not receive a ton of fluid yesterday. Will have GI consult. Is still reporting some shortness of breath particularly when getting up out of bed. Cardiology following. PT OT. Plan of care discussed bedside RN 12/24 Patient evaluated and examined at bedside. He was doing well saying his shortness of breath has improved. Hemoglobin stable no further dark stools. Stooling normally. Planning for discharge home today. Advised him on importance of follow-ups with primary care GI and cardiology. I spent greater than 30 minutes on the discharge of this patient. I discussed advance care planning with this patient for about 17 minutes. Disposition: Disposition/Orders: D/C to Home Activity: Activity: Resume previous activity Diet: Diet: Cardiac Medications: Home Meds Active Scripts Pantoprazole Sodium (PANTOPRAZOLE SODIUM ) 40 Mg Tablet., 40 MG PO DAILYAC for gerd for 60 Days, #60 TAB.SR Prov:SONU LOFTON MD 12/24/20 Lisinopril (LISINOPRIL) 5 Mg Tablet, 5 MG PO DAILY for htn for 60 Days, #60 TAB Prov:SONU LOFTON MD 12/24/20 Scheduled Lisinopril (Lisinopril), 5 MG PO DAILY Pantoprazole Sodium (Pantoprazole Sodium ), 40 MG PO DAILYAC Justicifation of Admission Dx: Justifications for Admission: Justification of Admission Dx: Yes SONU LOFTON MD Dec 24, 2020 11:59
--- NOTE | 2020-12-24 13:33 | NUR ---
ALEXANDRIA Howard paged re: poss d/c home today and f/u.
--- NOTE | 2020-12-24 14:58 | NUR ---
Pt. discharged to home, rx sent to pharmacy. Pt. verbalized understanding of discharge instructions.
--- NOTE | 2020-12-24 16:20 | NUR ---
SW following. Discussed with RNBobby (RAOUL) met with pt due to Meth use/abuse. Pt uses meth a couple times a week and drinks a 6 pack of beer daily for life stressors and anxiety. Pt provided with resources for [facility], [facility], [facility] and NA. Pt discharged home earlier today.
== END 2020-12-24 15:04 | disposition home or self-care (01) | DRG 377 ==
LOC: ER 14:41 → ED HOLD 20:00 → 4 NORTH 12-22 04:22
PROVIDERS: ADMIT Internal Medicine; ATTEND Internal Medicine
PROC: 5A09357 Assistance with Respiratory Ventilation, Less than 24 Consecutive Hours, Continuous Positive Airway Pressure (ICD-10-PCS; principal; 2020-12-22)
PROC: 5A09357 Assistance with Respiratory Ventilation, Less than 24 Consecutive Hours, Continuous Positive Airway Pressure (ICD-10-PCS; 2020-12-23)
DX: K92.2 Gastrointestinal hemorrhage, unspecified (principal); I50.33 Acute on chronic diastolic (congestive) heart failure; K56.600 Partial intestinal obstruction, unspecified as to cause; F10.10 Alcohol abuse, uncomplicated; I11.0 Hypertensive heart disease with heart failure; K76.0 Fatty (change of) liver, not elsewhere classified; R32 Unspecified urinary incontinence; W22.09XA Striking against other stationary object, initial encounter; Y92.009 Unspecified place in unspecified non-institutional (private) residence as the place of occurrence of the external cause; Z82.49 Family history of ischemic heart disease and other diseases of the circulatory system; Z91.19 Patient's noncompliance with other medical treatment and regimen; K21.9 Gastro-esophageal reflux disease without esophagitis; Z20.822 Contact with and (suspected) exposure to COVID-19; R73.9 Hyperglycemia, unspecified; F15.10 Other stimulant abuse, uncomplicated; D50.9 Iron deficiency anemia, unspecified; W18.39XA Other fall on same level, initial encounter; Y93.89 Activity, other specified; Y99.8 Other external cause status
CPT/HCPCS: 36415; 70450; 71045; 72125; 74022; 74177; 80053; 80061; 80307; 81001; 82607; 82962; 83036; 83540; 83550; 83690; 83880; 84443; 84484; 85025; 85027; 85610; 85730; 87426; 87493; 87505; 87804; 93005; 93306; 94660; 96361; 96374; 96375; J1644; J1940; J2405; J3490; J7030; Q9967; U0003; 99285-25; G0378